=== PATIENT | male | born 1965 | race Caucasian/White ===

== ENCOUNTER 2016-09-22 07:34 | Inpatient (IN) | payer MEDICARE ==
[~2016-09-22] VITALS: Ht 182.9 cm; Wt 130.2 kg
[~2016-09-22 07:34] MED LIST: ARIP10TA14 PO
[2016-09-22] MEDS ORDERED: PARO20TA24 PO (07:54)
[2016-09-22] MEDS ORDERED: TRAZ-144 PO (07:54)
[2016-09-22] MEDS ORDERED: RISP2 PO (07:54)
[2016-09-22 07:57] LABS: GLUCOSE,POINT OF CARE 109 MG/DL (70-110)
[2016-09-22 08:25] LABS: EOSINOPHILS # (AUTO) 0.21 K/uL (0.00-0.70); EOSINOPHILS % (AUTO) 3.34 % (1.0-6.0); HEMATOCRIT 42.7 % (41-53); HEMOGLOBIN 14.2 g/dL (13.5-17.5); LYMPHOCYTES # (AUTO) 1.2 K/uL (1.0-4.8); LYMPHOCYTES % (AUTO) 18.9 % (22.0-44.0); MEAN CORPUSCULAR HEMOGLOBIN 31.2 pg (26.0-34.0); MEAN CORPUSCULAR HGB CONC 33.3 G/dL (31.0-37.0); MEAN CORPUSCULAR VOLUME 94 fL (80-100); MONOCYTES # (AUTO) 0.4 K/uL (0.1-1.0); MONOCYTES % (AUTO) 5.7 % (2.0-9.0); NEUTROPHILS # (AUTO) 4.5 K/uL (1.8-7.7); NEUTROPHILS % (AUTO) 72.1 % (40.0-70.0); PLATELET COUNT (AUTO) 229 K/uL (150-450); RED BLOOD CELL COUNT(AUTO) 4.56 MIL/uL (4.50-5.90); RED CELL DISTRIBUTION WIDTH 14.1 % (11.5-14.5); WHITE BLOOD COUNT (AUTO) 6.3 K/uL (4.5-11.0)
[2016-09-22 08:33] LABS: ANION GAP 8 mmol/L (8-16); CALCIUM, TOTAL 8.6 mg/dL (8.8-10.5); CARBON DIOXIDE 28 mmol/L (22-29); CHLORIDE 101 mmol/L (98-107); GLOMERULAR FILTR. RATE CALC > 60 mL/min (>60); POTASSIUM 3.8 mmol/L (3.5-5.1); SODIUM SERUM 137 mmol/L (136-145); UREA NITROGEN, BLOOD 13 mg/dL (7-18)
[2016-09-22 08:38] LABS: ALANINE AMINOTRANSFERASE 16 U/L (12-78); ALBUMIN 3.7 g/dL (3.4-5.0); ASPARTATE AMINOTRANSFERASE 11 U/L (15-37); BILIRUBIN,TOTAL 0.9 mg/dL (0.1-1.0)
[2016-09-22] MEDS ORDERED: HALOPERIDOL 5 MG TABLET PO ONE (09:45)
[2016-09-22] MEDS ORDERED: LORazepam 2 MG TABLET PO ONE (09:45)
[2016-09-22] MEDS ORDERED: ZOLPIDEM TARTRATE 10 MG TABLET PO PRN (11:00)
[2016-09-22] MEDS ORDERED: HALOPERIDOL 5 MG TABLET PO PRN (11:00)
[2016-09-22] MEDS ORDERED: INFLUENZA VIRUS VACCINE QVS 2016-17 (3YR+)/PF 60 MCG/0.5 ML SYRINGE IM ONE (15:00)
[2016-09-22 16:00] VITALS: BP 134/64
[2016-09-22] MEDS ORDERED: ALBUTEROL SULFATE HFA 90 MCG/PUFF 8 GM INHALER IH PRN (17:45)
[2016-09-22] MEDS ORDERED: IBUPROFEN 400 MG TABLET PO PRN (17:45)
[2016-09-22] MEDS ORDERED: ACETAMINOPHEN 325 MG TABLET PO PRN (17:45)
[2016-09-23 08:17] VITALS: BP 145/91
[2016-09-23] MEDS ORDERED: ARIPiprazole 10 MG TABLET PO SCH (09:00)
[2016-09-23] MEDS: AmLODIPine BESYLATE 2.5 MG TABLET PO SCH (09:31)
[2016-09-23] MEDS: HALOPERIDOL 5 MG TABLET PO SCH ×2 (09:31→16:49)
[2016-09-23] MEDS: LORazepam 2 MG TABLET PO PRN ×2 (09:32→16:49)
[2016-09-23 16:00] VITALS: BP 142/90
[2016-09-24 08:11] VITALS: BP 138/89
[2016-09-24] MEDS: AmLODIPine BESYLATE 2.5 MG TABLET PO SCH (09:03)
[2016-09-24] MEDS: HALOPERIDOL 5 MG TABLET PO SCH ×2 (09:03→17:01)
[2016-09-24 16:52] VITALS: BP 149/87
[2016-09-24] MEDS: LORazepam 2 MG TABLET PO PRN (17:01)
[2016-09-25] MEDS: AmLODIPine BESYLATE 2.5 MG TABLET PO SCH (08:24)
[2016-09-25] MEDS: HALOPERIDOL 5 MG TABLET PO SCH ×2 (08:24→17:02)
[2016-09-25] MEDS: LORazepam 2 MG TABLET PO PRN ×2 (08:24→17:02)
[2016-09-25 09:55] VITALS: BP 135/70
[2016-09-25 16:00] VITALS: BP 138/75
[2016-09-26 08:09] LABS: HEMOGLOBIN A1C 4.9 % (4.5-6.2)
[2016-09-26 08:16] VITALS: BP 130/74
[2016-09-26 08:36] LABS: CHOL/HDL RATIO 2.8 (4.2-7.3); THYROID STIMULATING HORMONE 1.43 uIU/mL (0.36-3.74)
[2016-09-26] MEDS: LORazepam 2 MG TABLET PO PRN (09:58)
[2016-09-26] MEDS: HALOPERIDOL 5 MG TABLET PO SCH (09:58)
[2016-09-26] MEDS: AmLODIPine BESYLATE 2.5 MG TABLET PO SCH (09:58)
[2016-09-26] MEDS ORDERED: AMLO2.5T PO (13:39)
[2016-09-26] MEDS ORDERED: HALO5 PO (13:39)
== END 2016-09-26 14:45 | disposition home or self-care (01) | DRG 885 ==
LOC: EEVIPCON 07:34 → EMS 07:36 → AHU 12:49 → B3A 13:41
PROVIDERS: ADMIT Psychiatry & Neurology Child & Adolescent Psychiatry; ATTEND Psychiatry & Neurology Child & Adolescent Psychiatry
DX: F25.0 Schizoaffective disorder, bipolar type (principal); R45.851 Suicidal ideations; E11.9 Type 2 diabetes mellitus without complications; I10 Essential (primary) hypertension; J44.9 Chronic obstructive pulmonary disease, unspecified; D64.9 Anemia, unspecified; F17.210 Nicotine dependence, cigarettes, uncomplicated; E66.3 Overweight; Z28.21 Immunization not carried out because of patient refusal; Z91.19 Patient's noncompliance with other medical treatment and regimen; Z88.8 Allergy status to other drugs, medicaments and biological substances; Z68.38 Body mass index [BMI] 38.0-38.9, adult; Z79.899 Other long term (current) drug therapy; Z71.6 Tobacco abuse counseling; Z86.718 Personal history of other venous thrombosis and embolism
CPT/HCPCS: 82962; 83036; 84443; 99285; G0480

== ENCOUNTER 2016-12-13 16:06 | Inpatient (IN) | payer MEDICARE, MEDICAID ==
[~2016-12-13] VITALS: Ht 182.9 cm; Wt 139.3 kg
[~2016-12-13 16:06] MED LIST changes: +AMLO2.5T PO; -ARIP10TA14 PO; +HALO5 PO
[2016-12-13 16:27] LABS: GLUCOSE COMMENT 1 Repeated; GLUCOSE,POINT OF CARE 131 MG/DL (70-110)
[2016-12-13] MEDS ORDERED: LISI-660 PO (16:35)
[2016-12-13] MEDS ORDERED: RISP.5 PO (16:35)
[2016-12-13] MEDS ORDERED: ARIP2 PO (16:35)
[2016-12-13] MEDS ORDERED: PARO10TA89 PO (16:35)
[2016-12-13 16:53] LABS: BASOPHILS % (AUTO) 0.1 % (0.0-2.0); EOSINOPHILS % (AUTO) 2.4 % (1.0-6.0); HEMATOCRIT 42.4 % (41-53); HEMOGLOBIN 13.6 g/dL (13.5-17.5); LYMPHOCYTES # (AUTO) 1.4 K/uL (1.0-4.8); LYMPHOCYTES % (AUTO) 13.4 % (22.0-44.0); MEAN CORPUSCULAR HEMOGLOBIN 29.8 pg (26.0-34.0); MEAN CORPUSCULAR HGB CONC 32.1 G/dL (31.0-37.0); MEAN CORPUSCULAR VOLUME 93 fL (80-100); MONOCYTES # (AUTO) 0.5 K/uL (0.1-1.0); MONOCYTES % (AUTO) 5.2 % (2.0-9.0); NEUTROPHILS % (AUTO) 78.9 % (40.0-70.0); PLATELET COUNT (AUTO) 218 K/uL (150-450); RED BLOOD CELL COUNT(AUTO) 4.56 MIL/uL (4.50-5.90); WHITE BLOOD COUNT (AUTO) 10.1 K/uL (4.5-11.0)
[2016-12-13 17:10] LABS: ANION GAP 9 mmol/L (8-16); CALCIUM, TOTAL 9.1 mg/dL (8.8-10.5); CARBON DIOXIDE 28 mmol/L (22-29); CHLORIDE 104 mmol/L (98-107); CREATININE 0.82 mg/dL (0.60-1.30); GLOMERULAR FILTR. RATE CALC > 60 mL/min (>60); POTASSIUM 3.6 mmol/L (3.5-5.1); SODIUM SERUM 141 mmol/L (136-145); UREA NITROGEN, BLOOD 22 mg/dL (7-18)
[2016-12-13 17:15] LABS: ALANINE AMINOTRANSFERASE 20 U/L (12-78); ALBUMIN 3.7 g/dL (3.4-5.0); ASPARTATE AMINOTRANSFERASE 19 U/L (15-37); BILIRUBIN,TOTAL 0.6 mg/dL (0.1-1.0); TOTAL PROTEIN, SERUM 7.3 g/dL (6.4-8.2)
[2016-12-13] MEDS ORDERED: HALOPERIDOL 5 MG TABLET PO PRN (17:30)
[2016-12-13] MEDS: LORazepam 2 MG TABLET PO PRN (20:05)
[2016-12-13] MEDS ORDERED: PNEUMOCOCCAL VACCINE POLYVALENT 0.5 ML VIAL [PPSV23] IM ONE (20:45)
[2016-12-13 21:01] LABS: GLUCOSE,POINT OF CARE 109 MG/DL (70-110)
[2016-12-13 21:23] VITALS: BP 138/80
[2016-12-14 07:10] VITALS: BP 132/85
[2016-12-14] MEDS: AmLODIPine BESYLATE 2.5 MG TABLET PO SCH (09:46)
[2016-12-14] MEDS: NYSTATIN 15 GM POWDER BOTTLE TP SCH ×2 (09:46→17:28)
[2016-12-14] MEDS: HALOPERIDOL 10 MG TABLET PO SCH (20:21)
[2016-12-14] MEDS: ZOLPIDEM TARTRATE 10 MG TABLET PO PRN (20:21)
[2016-12-14] MEDS: LORazepam 2 MG TABLET PO PRN (20:38)
[2016-12-15] MEDS: NYSTATIN 15 GM POWDER BOTTLE TP SCH ×2 (08:21→18:03)
[2016-12-15] MEDS: AmLODIPine BESYLATE 2.5 MG TABLET PO SCH (08:22)
[2016-12-15] MEDS: HALOPERIDOL 10 MG TABLET PO SCH (20:45)
[2016-12-15] MEDS: ZOLPIDEM TARTRATE 10 MG TABLET PO PRN (21:51)
[2016-12-16] MEDS: AmLODIPine BESYLATE 2.5 MG TABLET PO SCH (08:56)
[2016-12-16] MEDS: NYSTATIN 15 GM POWDER BOTTLE TP SCH (08:58)
[2016-12-16] MEDS ORDERED: ACETAMINOPHEN 325 MG TABLET PO PRN (10:30)
[2016-12-16] MEDS ORDERED: HALO10 PO (10:56)
[2016-12-16] MEDS ORDERED: AMLO2.5T PO (10:57)
== END 2016-12-16 13:05 | disposition home or self-care (01) | DRG 885 ==
LOC: EMS 16:08 → B3A 17:43
PROVIDERS: ADMIT Psychiatry & Neurology Psychiatry; ATTEND Psychiatry & Neurology Psychiatry
PROC: 3E0234Z Introduction of Serum, Toxoid and Vaccine into Muscle, Percutaneous Approach (ICD-10-PCS; principal; 2016-12-13)
DX: F25.9 Schizoaffective disorder, unspecified (principal); R45.851 Suicidal ideations; F32.9 Major depressive disorder, single episode, unspecified; I10 Essential (primary) hypertension; E11.9 Type 2 diabetes mellitus without complications; J44.9 Chronic obstructive pulmonary disease, unspecified; G40.909 Epilepsy, unspecified, not intractable, without status epilepticus; Z83.3 Family history of diabetes mellitus; Z80.9 Family history of malignant neoplasm, unspecified; Z88.8 Allergy status to other drugs, medicaments and biological substances; Z86.718 Personal history of other venous thrombosis and embolism; Z79.899 Other long term (current) drug therapy; Z53.29 Procedure and treatment not carried out because of patient's decision for other reasons
CPT/HCPCS: 82962; 99285; G0480

== ENCOUNTER 2017-02-16 00:48 | Emergency (ER) | payer MEDICARE, MEDICAID ==
[~2017-02-16] VITALS: Ht 190.5 cm; Wt 140.0 kg
[~2017-02-16 00:48] MED LIST changes: +HALO10 PO; -HALO5 PO
[2017-02-16 02:19] LABS: BASOPHILS # (AUTO) 0.02 K/uL (0.00-0.20); BASOPHILS % (AUTO) 0.2 % (0.0-2.0); EOSINOPHILS # (AUTO) 0.22 K/uL (0.00-0.70); EOSINOPHILS % (AUTO) 2.44 % (1.0-6.0); HEMATOCRIT 42.8 % (41-53); HEMOGLOBIN 14.2 g/dL (13.5-17.5); LYMPHOCYTES # (AUTO) 1.4 K/uL (1.0-4.8); LYMPHOCYTES % (AUTO) 15.5 % (22.0-44.0); MEAN CORPUSCULAR HEMOGLOBIN 31.5 pg (26.0-34.0); MEAN CORPUSCULAR HGB CONC 33.2 G/dL (31.0-37.0); MEAN CORPUSCULAR VOLUME 95 fL (80-100); MONOCYTES # (AUTO) 0.6 K/uL (0.1-1.0); MONOCYTES % (AUTO) 6.8 % (2.0-9.0); NEUTROPHILS # (AUTO) 6.9 K/uL (1.8-7.7); NEUTROPHILS % (AUTO) 75.1 % (40.0-70.0); PLATELET COUNT (AUTO) 227 K/uL (150-450); RED BLOOD CELL COUNT(AUTO) 4.51 MIL/uL (4.50-5.90); WHITE BLOOD COUNT (AUTO) 9.2 K/uL (4.5-11.0)
[2017-02-16 02:30] LABS: ANION GAP 9 mmol/L (8-16); CALCIUM, TOTAL 9.3 mg/dL (8.8-10.5); CARBON DIOXIDE 28 mmol/L (22-29); CHLORIDE 103 mmol/L (98-107); CREATININE 0.91 mg/dL (0.60-1.30); GLOMERULAR FILTR. RATE CALC > 60 mL/min (>60); POTASSIUM 3.5 mmol/L (3.5-5.1); SODIUM SERUM 140 mmol/L (136-145); UREA NITROGEN, BLOOD 20 mg/dL (7-18)
[2017-02-16 02:37] LABS: ALANINE AMINOTRANSFERASE 22 U/L (12-78); ASPARTATE AMINOTRANSFERASE 12 U/L (15-37); BILIRUBIN,TOTAL 0.6 mg/dL (0.1-1.0); TOTAL PROTEIN, SERUM 7.3 g/dL (6.4-8.2)
[2017-02-16] MEDS ORDERED: LORazepam 2 MG TABLET PO ONE (03:30)
[2017-02-16 03:37] LABS: VALPROIC ACID < 3 mcg/mL (50-100)
[2017-02-16 03:59] VITALS: BP 132/63
== END 2017-02-16 04:01 | disposition home or self-care (01) ==
LOC: EMS 00:51
DX: F32.9 Major depressive disorder, single episode, unspecified (principal); E11.9 Type 2 diabetes mellitus without complications; F20.9 Schizophrenia, unspecified; I10 Essential (primary) hypertension; Z88.8 Allergy status to other drugs, medicaments and biological substances
CPT/HCPCS: 36415; 80053; 80164; 85025; 99284; G0480

== ENCOUNTER 2017-10-26 17:27 | Inpatient (IN) | payer MEDICARE, MEDICAID ==
[~2017-10-26] VITALS: Ht 182.9 cm; Wt 113.3 kg
[2017-10-26] MEDS ORDERED: LISI-661 PO (18:24)
[2017-10-26] MEDS ORDERED: METF500T4 PO (18:24)
[2017-10-26 18:42] LABS: GLUCOSE,POINT OF CARE 148 MG/DL (70-110)
[2017-10-26 18:57] LABS: BASOPHILS % (AUTO) 0.3 % (0.0-2.0); EOSINOPHILS % (AUTO) 3.5 % (1.0-6.0); HEMATOCRIT 38.5 % (41-53); HEMOGLOBIN 13.1 g/dL (13.5-17.5); LYMPHOCYTES # (AUTO) 1.8 K/uL (1.0-4.8); LYMPHOCYTES % (AUTO) 24.7 % (22.0-44.0); MEAN CORPUSCULAR HEMOGLOBIN 31.1 pg (26.0-34.0); MEAN CORPUSCULAR HGB CONC 34.1 G/dL (31.0-37.0); MEAN CORPUSCULAR VOLUME 91 fL (80-100); MONOCYTES # (AUTO) 0.6 K/uL (0.1-1.0); MONOCYTES % (AUTO) 7.6 % (2.0-9.0); NEUTROPHILS # (AUTO) 4.6 K/uL (1.8-7.7); NEUTROPHILS % (AUTO) 63.9 % (40.0-70.0); PLATELET COUNT (AUTO) 215 K/uL (150-450); RED BLOOD CELL COUNT(AUTO) 4.22 MIL/uL (4.50-5.90); RED CELL DISTRIBUTION WIDTH 13.4 % (11.5-14.5)
[2017-10-26 19:22] LABS: ANION GAP 9 mmol/L (8-16); CALCIUM, TOTAL 8.6 mg/dL (8.8-10.5); CARBON DIOXIDE 28 mmol/L (22-29); CHLORIDE 104 mmol/L (98-107); GLOMERULAR FILTR. RATE CALC > 60 mL/min (>60); GLUCOSE,RANDOM 141 mg/dL (70-110); POTASSIUM 3.9 mmol/L (3.5-5.1); SODIUM SERUM 141 mmol/L (136-145); UREA NITROGEN, BLOOD 15 mg/dL (7-18)
[2017-10-26 19:25] LABS: ALANINE AMINOTRANSFERASE 21 U/L (12-78); ALBUMIN 3.4 g/dL (3.4-5.0); ALKALINE PHOSPHATASE 55 U/L (46-116); ASPARTATE AMINOTRANSFERASE 13 U/L (15-37); BILIRUBIN,TOTAL 0.3 mg/dL (0.1-1.0); TOTAL PROTEIN, SERUM 6.4 g/dL (6.4-8.2)
[2017-10-26] MEDS ORDERED: HALOPERIDOL LACTATE 5 MG/ML VIAL ONE (20:55)
[2017-10-26] MEDS ORDERED: LORazepam 2 MG/ML VIAL ONE (20:55)
[2017-10-26] MEDS ORDERED: DiphenhydrAMINE HCL 50 MG/ML VIAL ONE (20:55)
[2017-10-26] MEDS ORDERED: LORazepam 2 MG/ML VIAL IM ONE ×2 (21:00)
[2017-10-26] MEDS ORDERED: HALOPERIDOL LACTATE 5 MG/ML VIAL IM ONE ×2 (21:00)
[2017-10-26] MEDS ORDERED: DiphenhydrAMINE HCL 50 MG/ML VIAL IM ONE ×2 (21:00)
[2017-10-27 02:30] LABS: CHOL/HDL RATIO 3.1 (4.2-7.3); CHOLESTEROL 127 mg/dL (131-200); HDL CHOLESTEROL 41 mg/dL (40-60); LDL CHOL (CALC.) 80 mg/dL (0-130); TRIGLYCERIDES 28 mg/dL (15-150)
[2017-10-27] MEDS ORDERED: ACETAMINOPHEN 325 MG TABLET PO PRN (12:00)
[2017-10-27] MEDS ORDERED: IBUPROFEN 400 MG TABLET PO PRN (12:00)
[2017-10-27] MEDS: LORazepam 2 MG TABLET PO PRN (17:22)
[2017-10-27] MEDS: ZOLPIDEM TARTRATE 10 MG TABLET PO PRN (20:44)
[2017-10-27] MEDS ORDERED: MetFORMIN HCL 500 MG TABLET PO SCH (21:00)
[2017-10-28 01:40] VITALS: BP 121/88
[2017-10-28] MEDS ORDERED: INFLUENZA VIRUS VACCINE QVS 2017-18 (3YR+)/PF 60 MCG/0.5 ML SYRINGE IM ONE (02:15)
[2017-10-28] MEDS ORDERED: PNEUMOCOCCAL VACCINE POLYVALENT 0.5 ML VIAL [PPSV23] IM ONE (02:15)
[2017-10-28 08:12] VITALS: BP 169/105
[2017-10-28] MEDS: LISINOPRIL 10 MG TABLET PO SCH (08:16)
[2017-10-28] MEDS ORDERED: ALBUTEROL SULFATE HFA 90 MCG/PUFF 8 GM INHALER IH PRN (14:15)
[2017-10-28] MEDS ORDERED: CloNIDine HCL 0.1 MG TABLET PO PRN (14:15)
[2017-10-28] MEDS: HALOPERIDOL 5 MG TABLET PO PRN (15:58)
[2017-10-28] MEDS: LORazepam 2 MG TABLET PO PRN (15:58)
[2017-10-28 16:00] VITALS: BP 135/86
[2017-10-28] MEDS: MetFORMIN HCL 500 MG TABLET PO SCH (17:08)
[2017-10-28] MEDS: ZOLPIDEM TARTRATE 10 MG TABLET PO PRN (20:41)
[2017-10-28] MEDS ORDERED: HALOPERIDOL 10 MG TABLET PO SCH (21:00)
[2017-10-29 00:07] VITALS: BP 123/83
[2017-10-29] MEDS: MetFORMIN HCL 500 MG TABLET PO SCH ×2 (06:27→16:48)
[2017-10-29 08:09] VITALS: BP 128/78
[2017-10-29] MEDS: LISINOPRIL 10 MG TABLET PO SCH (08:39)
[2017-10-29] MEDS: HALOPERIDOL 5 MG TABLET PO PRN ×2 (11:30→16:48)
[2017-10-29] MEDS: LORazepam 2 MG TABLET PO PRN ×2 (11:30→16:48)
[2017-10-29 16:00] VITALS: BP 140/86
[2017-10-29] MEDS: HALOPERIDOL 10 MG TABLET PO SCH (20:40)
[2017-10-29] MEDS: ZOLPIDEM TARTRATE 10 MG TABLET PO PRN (20:40)
[2017-10-30 06:43] VITALS: BP 157/85
[2017-10-30] MEDS: MetFORMIN HCL 500 MG TABLET PO SCH ×2 (06:43→16:28)
[2017-10-30] MEDS: HALOPERIDOL 10 MG TABLET PO SCH ×2 (08:24→20:46)
[2017-10-30] MEDS: LISINOPRIL 10 MG TABLET PO SCH (08:24)
[2017-10-30 08:33] VITALS: BP 143/71
[2017-10-30 16:08] VITALS: BP 156/88
[2017-10-30] MEDS: LORazepam 2 MG TABLET PO PRN (16:28)
[2017-10-31] MEDS: MetFORMIN HCL 500 MG TABLET PO SCH (07:08)
[2017-10-31] MEDS: HALOPERIDOL 10 MG TABLET PO SCH (08:43)
[2017-10-31] MEDS: LISINOPRIL 10 MG TABLET PO SCH (08:43)
[2017-10-31] MEDS ORDERED: HALO10TA15 PO (11:17)
[2017-10-31] MEDS ORDERED: METF500T PO (11:17)
== END 2017-10-31 16:47 | disposition home or self-care (01) | DRG 885 ==
LOC: EMS 17:30 → B3A 10-27 22:14
PROVIDERS: ADMIT Psychiatry & Neurology Child & Adolescent Psychiatry; ATTEND Psychiatry & Neurology Child & Adolescent Psychiatry
DX: F25.9 Schizoaffective disorder, unspecified (principal); E44.1 Mild protein-calorie malnutrition; R45.851 Suicidal ideations; F31.9 Bipolar disorder, unspecified; E11.9 Type 2 diabetes mellitus without complications; E66.3 Overweight; E83.51 Hypocalcemia; F17.210 Nicotine dependence, cigarettes, uncomplicated; F41.9 Anxiety disorder, unspecified; G40.909 Epilepsy, unspecified, not intractable, without status epilepticus; I10 Essential (primary) hypertension; J44.9 Chronic obstructive pulmonary disease, unspecified; Z59.9 Problem related to housing and economic circumstances, unspecified; Z82.49 Family history of ischemic heart disease and other diseases of the circulatory system; Z83.3 Family history of diabetes mellitus; Z86.718 Personal history of other venous thrombosis and embolism; Z88.8 Allergy status to other drugs, medicaments and biological substances; Z79.899 Other long term (current) drug therapy; Z68.33 Body mass index [BMI] 33.0-33.9, adult
CPT/HCPCS: 82962; 90471; 96372; 99285; G0480; J1200; J1630; J2060

== ENCOUNTER 2018-05-01 03:08 | Emergency (ER) | payer MEDICAID, MEDICARE ==
[~2018-05-01] VITALS: Ht 180.3 cm; Wt 86.4 kg
[~2018-05-01 03:08] MED LIST changes: -AMLO2.5T PO; -HALO10 PO; +HALO10TA15 PO; +LISI-661 PO; +METF500T PO
[2018-05-01 03:14] VITALS: BP 150/91
[2018-05-01 03:29] LABS: GLUCOSE,POINT OF CARE 87 MG/DL (70-110)
== END 2018-05-01 04:27 | disposition home or self-care (01) ==
LOC: EMS 03:08
DX: F25.9 Schizoaffective disorder, unspecified (principal); F31.9 Bipolar disorder, unspecified; E11.9 Type 2 diabetes mellitus without complications; I10 Essential (primary) hypertension; Z86.718 Personal history of other venous thrombosis and embolism
CPT/HCPCS: 99284

== ENCOUNTER 2018-05-01 18:49 | Emergency (ER) | payer MEDICARE ==
[~2018-05-01] VITALS: Ht 180.3 cm; Wt 86.4 kg
[2018-05-01 21:35] VITALS: BP 142/86
[2018-05-01] MEDS ORDERED: ACETAMINOPHEN 500 MG TABLET PO ONE (22:00)
[2018-05-01] MEDS ORDERED: LORazepam 2 MG TABLET PO ONE (22:00)
[2018-05-01] MEDS ORDERED: HALOPERIDOL 5 MG TABLET PO ONE (22:00)
[2018-05-01 22:38] LABS: BASOPHILS % (AUTO) 0.8 % (0.0-2.0); EOSINOPHILS % (AUTO) 3.1 % (1.0-6.0); LYMPHOCYTES # (AUTO) 2.4 K/uL (1.0-4.8); LYMPHOCYTES % (AUTO) 31.9 % (22.0-44.0); MEAN CORPUSCULAR HEMOGLOBIN 30.8 pg (26.0-34.0); MEAN CORPUSCULAR HGB CONC 34.3 G/dL (31.0-37.0); MEAN CORPUSCULAR VOLUME 90 fL (80-100); MONOCYTES # (AUTO) 0.6 K/uL (0.1-1.0); MONOCYTES % (AUTO) 7.9 % (2.0-9.0); NEUTROPHILS # (AUTO) 4.3 K/uL (1.8-7.7); NEUTROPHILS % (AUTO) 56.3 % (40.0-70.0); PLATELET COUNT (AUTO) 231 K/uL (150-450); RED BLOOD CELL COUNT(AUTO) 3.56 MIL/uL (4.50-5.90); RED CELL DISTRIBUTION WIDTH 16.5 % (11.5-14.5)
[2018-05-01 22:39] LABS: ANION GAP 8 mmol/L (8-16); CALCIUM, TOTAL 9.2 mg/dL (8.8-10.5); CARBON DIOXIDE 29 mmol/L (22-29); CHLORIDE 102 mmol/L (98-107); CREATININE 0.98 mg/dL (0.60-1.30); GLOMERULAR FILTR. RATE CALC > 60 mL/min (>60); GLUCOSE,RANDOM 81 mg/dL (70-110); POTASSIUM 3.5 mmol/L (3.5-5.1); SODIUM SERUM 139 mmol/L (136-145); UREA NITROGEN, BLOOD 16 mg/dL (7-18)
[2018-05-01 22:41] LABS: ALANINE AMINOTRANSFERASE 11 U/L (12-78); ALBUMIN 3.6 g/dL (3.4-5.0); ALKALINE PHOSPHATASE 74 U/L (46-116); ASPARTATE AMINOTRANSFERASE 17 U/L (15-37); BILIRUBIN,TOTAL 0.8 mg/dL (0.1-1.0); TOTAL PROTEIN, SERUM 7.1 g/dL (6.4-8.2)
== END 2018-05-01 22:58 | disposition left against medical advice (07) ==
LOC: EMS 18:50
DX: F29 Unspecified psychosis not due to a substance or known physiological condition (principal); F20.9 Schizophrenia, unspecified; F31.9 Bipolar disorder, unspecified; E11.9 Type 2 diabetes mellitus without complications; I10 Essential (primary) hypertension; Z86.718 Personal history of other venous thrombosis and embolism; Z59.0 Homelessness
CPT/HCPCS: 36415; 80053; 85025; 99284; G0480

== ENCOUNTER 2018-05-09 03:01 | Emergency (ER) | payer MEDICARE ==
[~2018-05-09] VITALS: Ht 180.3 cm; Wt 86.0 kg
[2018-05-09 03:19] LABS: GLUCOSE,POINT OF CARE 123 MG/DL (70-110)
[2018-05-09 03:53] VITALS: BP 134/89
[2018-05-09 04:12] LABS: BAND NEUTROPHILS % (MANUAL) 0 % (0-5)
[2018-05-09 04:14] LABS: HEMATOCRIT 35.3 % (41-53); HEMOGLOBIN 11.8 g/dL (13.5-17.5); MEAN CORPUSCULAR HEMOGLOBIN 30.5 pg (26.0-34.0); MEAN CORPUSCULAR HGB CONC 33.5 G/dL (31.0-37.0); MEAN CORPUSCULAR VOLUME 91 fL (80-100); PLATELET COUNT (AUTO) 214 K/uL (150-450); RED BLOOD CELL COUNT(AUTO) 3.88 MIL/uL (4.50-5.90)
[2018-05-09 04:23] LABS: ANION GAP 7 mmol/L (8-16); CALCIUM, TOTAL 8.7 mg/dL (8.8-10.5); CARBON DIOXIDE 28 mmol/L (22-29); CHLORIDE 105 mmol/L (98-107); CREATININE 1.09 mg/dL (0.60-1.30); GLOMERULAR FILTR. RATE CALC > 60 mL/min (>60); GLUCOSE,RANDOM 105 mg/dL (70-110); POTASSIUM 3.9 mmol/L (3.5-5.1); SODIUM SERUM 140 mmol/L (136-145); UREA NITROGEN, BLOOD 33 mg/dL (7-18)
[2018-05-09 04:28] LABS: ALANINE AMINOTRANSFERASE 12 U/L (12-78); ALBUMIN 3.9 g/dL (3.4-5.0); ALKALINE PHOSPHATASE 77 U/L (46-116); ASPARTATE AMINOTRANSFERASE 11 U/L (15-37); BILIRUBIN,TOTAL 0.6 mg/dL (0.1-1.0); TOTAL PROTEIN, SERUM 7.4 g/dL (6.4-8.2)
[2018-05-09 04:31] LABS: BASOPHILS % (MANUAL) 2 % (0-2); EOSINOPHILS % (MANUAL) 4 % (1-6); LYMPHOCYTES % (MANUAL) 37 % (22-44); MONOCYTES % (MANUAL) 6 % (2-9); SEGMENTED NEUTROPHILS % 51 % (40-70)
[2018-05-09] MEDS ORDERED: ACETAMINOPHEN 325 MG TABLET PO ONE (05:00)
== END 2018-05-09 05:25 | disposition home or self-care (01) ==
LOC: EMS 03:02
DX: F31.9 Bipolar disorder, unspecified (principal); F20.9 Schizophrenia, unspecified; K42.9 Umbilical hernia without obstruction or gangrene; E11.9 Type 2 diabetes mellitus without complications; I10 Essential (primary) hypertension; Z86.718 Personal history of other venous thrombosis and embolism
CPT/HCPCS: 36415; 80053; 82962; 85007; 85027; 99284; G0480

== ENCOUNTER 2018-05-09 12:08 | Inpatient (IN) | payer MEDICARE, MEDICAID ==
[~2018-05-09] VITALS: Ht 182.9 cm; Wt 96.1 kg
[2018-05-09] MEDS ORDERED: LORazepam 2 MG/ML VIAL IM ONE (12:45)
[2018-05-09] MEDS ORDERED: DiphenhydrAMINE HCL 50 MG/ML VIAL IM ONE (12:45)
[2018-05-09] MEDS ORDERED: HALOPERIDOL LACTATE 5 MG/ML VIAL IM ONE (12:45)
[2018-05-09 12:53] LABS: BASOPHILS % (AUTO) 0.9 % (0.0-2.0); EOSINOPHILS % (AUTO) 5.6 % (1.0-6.0); HEMATOCRIT 32.7 % (41-53); HEMOGLOBIN 11.2 g/dL (13.5-17.5); LYMPHOCYTES # (AUTO) 1.6 K/uL (1.0-4.8); LYMPHOCYTES % (AUTO) 25.4 % (22.0-44.0); MEAN CORPUSCULAR HEMOGLOBIN 31.4 pg (26.0-34.0); MEAN CORPUSCULAR HGB CONC 34.2 G/dL (31.0-37.0); MEAN CORPUSCULAR VOLUME 92 fL (80-100); MONOCYTES # (AUTO) 0.5 K/uL (0.1-1.0); MONOCYTES % (AUTO) 7.9 % (2.0-9.0); NEUTROPHILS # (AUTO) 3.7 K/uL (1.8-7.7); NEUTROPHILS % (AUTO) 60.2 % (40.0-70.0); PLATELET COUNT (AUTO) 209 K/uL (150-450); RED BLOOD CELL COUNT(AUTO) 3.55 MIL/uL (4.50-5.90); RED CELL DISTRIBUTION WIDTH 16.3 % (11.5-14.5)
[2018-05-09 13:03] LABS: ANION GAP 10 mmol/L (8-16); CALCIUM, TOTAL 8.6 mg/dL (8.8-10.5); CARBON DIOXIDE 25 mmol/L (22-29); CHLORIDE 106 mmol/L (98-107); GLOMERULAR FILTR. RATE CALC > 60 mL/min (>60); GLUCOSE,RANDOM 124 mg/dL (70-110); POTASSIUM 3.9 mmol/L (3.5-5.1); SODIUM SERUM 141 mmol/L (136-145); UREA NITROGEN, BLOOD 32 mg/dL (7-18)
[2018-05-09 13:10] LABS: ALANINE AMINOTRANSFERASE 13 U/L (12-78); ALBUMIN 3.8 g/dL (3.4-5.0); ALKALINE PHOSPHATASE 74 U/L (46-116); ASPARTATE AMINOTRANSFERASE 11 U/L (15-37); BILIRUBIN,TOTAL 0.6 mg/dL (0.1-1.0); TOTAL PROTEIN, SERUM 7.3 g/dL (6.4-8.2)
[2018-05-09] MEDS ORDERED: PNEUMOCOCCAL VACCINE POLYVALENT 0.5 ML VIAL [PPSV23] IM ONE (16:45)
[2018-05-09 16:46] VITALS: BP 124/79
[2018-05-09] MEDS ORDERED: PETROLATUM,WHITE 71 GM JELLY TP PRN (17:30)
[2018-05-09] MEDS ORDERED: ALBUTEROL SULFATE HFA 90 MCG/PUFF 8 GM INHALER IH PRN (17:30)
[2018-05-09] MEDS ORDERED: DOCUSATE SODIUM 100 MG CAPSULE PO PRN (17:30)
[2018-05-09] MEDS ORDERED: ACETAMINOPHEN 325 MG TABLET PO PRN (17:30)
[2018-05-09] MEDS ORDERED: GuaiFENesin/D-METHORPHAN [SUGAR-FREE] 200-20MG/10 ML SYRUP UDCUP PO PRN (17:30)
[2018-05-09] MEDS ORDERED: MAG HYDROX/AL HYDROX/SIMETH ES 30 ML SUSPENSION UDCUP PO PRN (17:30)
[2018-05-09] MEDS ORDERED: MAGNESIUM HYDROXIDE SUSPENSION 30 ML UDCUP PO PRN (17:30)
[2018-05-09] MEDS ORDERED: NICOTINE 14 MG/24 HOUR PATCH TD PRN (17:30)
[2018-05-09] MEDS ORDERED: CloNIDine HCL 0.1 MG TABLET PO PRN (17:30)
[2018-05-09] MEDS ORDERED: LOPERAMIDE HCL 2 MG CAPSULE PO PRN (17:30)
[2018-05-10 06:34] VITALS: BP 128/74
[2018-05-10] MEDS: MetFORMIN HCL 500 MG TABLET PO SCH ×2 (06:35→16:50)
[2018-05-10 08:10] VITALS: BP 126/77
[2018-05-10] MEDS: LISINOPRIL 10 MG TABLET PO SCH (08:43)
[2018-05-10] MEDS: HALOPERIDOL 10 MG TABLET PO SCH ×2 (10:57→20:52)
[2018-05-10 16:00] VITALS: BP 110/74
[2018-05-10] MEDS: LORazepam 2 MG TABLET PO PRN (16:50)
[2018-05-10] MEDS: ZOLPIDEM TARTRATE 10 MG TABLET PO PRN (20:52)
[2018-05-11 06:37] VITALS: BP 134/77
[2018-05-11] MEDS: MetFORMIN HCL 500 MG TABLET PO SCH ×2 (06:44→16:54)
[2018-05-11 08:08] VITALS: BP 145/79
[2018-05-11] MEDS: LISINOPRIL 10 MG TABLET PO SCH (08:48)
[2018-05-11] MEDS: HALOPERIDOL 10 MG TABLET PO SCH ×2 (08:48→20:23)
[2018-05-11 16:00] VITALS: BP 133/90
[2018-05-11] MEDS: LORazepam 2 MG TABLET PO PRN (16:54)
[2018-05-12 03:17] VITALS: BP 130/71
[2018-05-12] MEDS: MetFORMIN HCL 500 MG TABLET PO SCH ×2 (06:23→17:08)
[2018-05-12 08:10] VITALS: BP 132/74
[2018-05-12] MEDS: LISINOPRIL 10 MG TABLET PO SCH (08:39)
[2018-05-12] MEDS: HALOPERIDOL 10 MG TABLET PO SCH ×2 (08:39→20:57)
[2018-05-12 08:53] LABS: BASOPHILS % (AUTO) 0.9 % (0.0-2.0); EOSINOPHILS % (AUTO) 5.2 % (1.0-6.0); HEMATOCRIT 31.3 % (41-53); HEMOGLOBIN 10.9 g/dL (13.5-17.5); LYMPHOCYTES # (AUTO) 1.5 K/uL (1.0-4.8); LYMPHOCYTES % (AUTO) 25.6 % (22.0-44.0); MEAN CORPUSCULAR HEMOGLOBIN 31.4 pg (26.0-34.0); MEAN CORPUSCULAR HGB CONC 34.8 G/dL (31.0-37.0); MEAN CORPUSCULAR VOLUME 90 fL (80-100); MONOCYTES # (AUTO) 0.4 K/uL (0.1-1.0); MONOCYTES % (AUTO) 6.3 % (2.0-9.0); NEUTROPHILS # (AUTO) 3.6 K/uL (1.8-7.7); PLATELET COUNT (AUTO) 185 K/uL (150-450); RED BLOOD CELL COUNT(AUTO) 3.48 MIL/uL (4.50-5.90); RED CELL DISTRIBUTION WIDTH 15.6 % (11.5-14.5)
[2018-05-12 09:14] LABS: HEMOGLOBIN A1C 5.1 % (4.5-6.2)
[2018-05-12 09:19] LABS: ALANINE AMINOTRANSFERASE 13 U/L (12-78); ALBUMIN 3.2 g/dL (3.4-5.0); ALKALINE PHOSPHATASE 62 U/L (46-116); ANION GAP 3 mmol/L (8-16); ASPARTATE AMINOTRANSFERASE 9 U/L (15-37); BILIRUBIN,TOTAL 0.4 mg/dL (0.1-1.0); CALCIUM, TOTAL 8.9 mg/dL (8.8-10.5); CARBON DIOXIDE 30 mmol/L (22-29); CHLORIDE 106 mmol/L (98-107); CHOL/HDL RATIO 2.6 (4.2-7.3); CHOLESTEROL 108 mg/dL (131-200); GLOMERULAR FILTR. RATE CALC > 60 mL/min (>60); GLUCOSE,RANDOM 79 mg/dL (70-110); HDL CHOLESTEROL 42 mg/dL (40-60); LDL CHOL (CALC.) 57 mg/dL (0-130); POTASSIUM 4.2 mmol/L (3.5-5.1); SODIUM SERUM 139 mmol/L (136-145); THYROID STIMULATING HORMONE 0.99 uIU/mL (0.36-3.74); TOTAL PROTEIN, SERUM 6.4 g/dL (6.4-8.2); TRIGLYCERIDES 44 mg/dL (15-150); UREA NITROGEN, BLOOD 22 mg/dL (7-18)
[2018-05-12] MEDS: LORazepam 2 MG TABLET PO PRN (17:08)
[2018-05-12] MEDS: OLANZapine 5 MG RAPDIS TABLET PO PRN (17:08)
[2018-05-12 17:51] VITALS: BP 147/99
[2018-05-12] MEDS: ZOLPIDEM TARTRATE 10 MG TABLET PO PRN (20:57)
[2018-05-13 05:43] VITALS: BP 133/76
[2018-05-13] MEDS: MetFORMIN HCL 500 MG TABLET PO SCH ×2 (06:27→17:30)
[2018-05-13] MEDS: HALOPERIDOL 10 MG TABLET PO SCH ×2 (08:37→20:37)
[2018-05-13] MEDS: LISINOPRIL 10 MG TABLET PO SCH (08:37)
[2018-05-13 10:30] VITALS: BP 146/91
[2018-05-13] MEDS: IBUPROFEN 400 MG TABLET PO PRN (10:34)
[2018-05-13 11:34] VITALS: BP 132/78
[2018-05-13 16:00] VITALS: BP 144/90
[2018-05-14 05:48] VITALS: BP 150/92
[2018-05-14] MEDS: MetFORMIN HCL 500 MG TABLET PO SCH ×2 (06:12→16:43)
[2018-05-14] MEDS: FERROUS SULFATE 325 MG EC TABLET PO SCH ×3 (06:12→16:43)
[2018-05-14 08:11] VITALS: BP 135/97
[2018-05-14] MEDS: HALOPERIDOL 10 MG TABLET PO SCH ×2 (08:11→20:59)
[2018-05-14] MEDS: LISINOPRIL 10 MG TABLET PO SCH (08:11)
[2018-05-14 16:00] VITALS: BP 134/89
[2018-05-14] MEDS: OLANZapine 5 MG RAPDIS TABLET PO PRN (16:43)
[2018-05-14] MEDS: LORazepam 2 MG TABLET PO PRN (16:43)
[2018-05-14] MEDS: ZOLPIDEM TARTRATE 10 MG TABLET PO PRN (20:59)
[2018-05-15 06:46] VITALS: BP 147/74
[2018-05-15] MEDS: MetFORMIN HCL 500 MG TABLET PO SCH ×2 (06:48→17:05)
[2018-05-15] MEDS: FERROUS SULFATE 325 MG EC TABLET PO SCH ×3 (06:48→17:05)
[2018-05-15] MEDS: IBUPROFEN 400 MG TABLET PO PRN (06:48)
[2018-05-15 08:08] VITALS: BP 138/75
[2018-05-15] MEDS: HALOPERIDOL 10 MG TABLET PO SCH ×2 (08:54→20:46)
[2018-05-15] MEDS: LISINOPRIL 10 MG TABLET PO SCH (08:54)
[2018-05-15] MEDS: ONDANSETRON HCL 4 MG TABLET PO PRN ×2 (12:11→20:46)
[2018-05-15 16:00] VITALS: BP 132/78
[2018-05-16 01:57] VITALS: BP 123/62
[2018-05-16] MEDS: FERROUS SULFATE 325 MG EC TABLET PO SCH ×3 (06:23→17:25)
[2018-05-16] MEDS: MetFORMIN HCL 500 MG TABLET PO SCH ×2 (06:23→17:25)
[2018-05-16 08:25] VITALS: BP 115/56
[2018-05-16] MEDS: LISINOPRIL 10 MG TABLET PO SCH (09:00)
[2018-05-16] MEDS: HALOPERIDOL 10 MG TABLET PO SCH ×2 (09:36→21:36)
[2018-05-16 16:00] VITALS: BP 130/88
[2018-05-17 02:07] VITALS: BP 122/74
[2018-05-17] MEDS: MetFORMIN HCL 500 MG TABLET PO SCH ×2 (07:19→16:46)
[2018-05-17] MEDS: FERROUS SULFATE 325 MG EC TABLET PO SCH ×3 (07:19→16:46)
[2018-05-17] MEDS: LISINOPRIL 10 MG TABLET PO SCH (09:09)
[2018-05-17] MEDS: HALOPERIDOL 10 MG TABLET PO SCH ×2 (09:10→20:30)
[2018-05-17 09:16] VITALS: BP 119/70
[2018-05-17 16:43] VITALS: BP 119/69
[2018-05-17] MEDS: LORazepam 2 MG TABLET PO PRN (16:46)
[2018-05-17] MEDS: ZOLPIDEM TARTRATE 10 MG TABLET PO PRN (20:30)
[2018-05-18 01:44] VITALS: BP 103/67
[2018-05-18] MEDS: MetFORMIN HCL 500 MG TABLET PO SCH ×2 (07:19→17:40)
[2018-05-18] MEDS: FERROUS SULFATE 325 MG EC TABLET PO SCH ×3 (07:19→17:40)
[2018-05-18] MEDS: LISINOPRIL 10 MG TABLET PO SCH (09:30)
[2018-05-18] MEDS: HALOPERIDOL 10 MG TABLET PO SCH ×2 (09:30→20:08)
[2018-05-18] MEDS: LORazepam 2 MG TABLET PO PRN (10:24)
[2018-05-18 16:24] VITALS: BP 115/85
[2018-05-18] MEDS: ZOLPIDEM TARTRATE 10 MG TABLET PO PRN (20:08)
[2018-05-19 01:10] VITALS: BP 145/91
[2018-05-19] MEDS: MetFORMIN HCL 500 MG TABLET PO SCH ×2 (06:54→18:16)
[2018-05-19] MEDS: FERROUS SULFATE 325 MG EC TABLET PO SCH ×3 (06:54→18:16)
[2018-05-19 08:18] VITALS: BP 142/78
[2018-05-19] MEDS: HALOPERIDOL 10 MG TABLET PO SCH ×2 (09:01→20:33)
[2018-05-19] MEDS: LORazepam 2 MG TABLET PO PRN (09:01)
[2018-05-19] MEDS: LISINOPRIL 10 MG TABLET PO SCH (09:01)
[2018-05-19] MEDS: IBUPROFEN 400 MG TABLET PO PRN (09:18)
[2018-05-19 18:10] VITALS: BP 129/67
[2018-05-19] MEDS: ZOLPIDEM TARTRATE 10 MG TABLET PO PRN (20:33)
[2018-05-20 06:25] VITALS: BP 119/70
[2018-05-20] MEDS: MetFORMIN HCL 500 MG TABLET PO SCH ×2 (06:51→16:18)
[2018-05-20] MEDS: FERROUS SULFATE 325 MG EC TABLET PO SCH ×3 (06:51→16:18)
[2018-05-20 08:34] VITALS: BP 142/80
[2018-05-20] MEDS: LISINOPRIL 10 MG TABLET PO SCH (10:18)
[2018-05-20] MEDS: HALOPERIDOL 10 MG TABLET PO SCH ×2 (10:18→20:03)
[2018-05-20] MEDS: LORazepam 2 MG TABLET PO PRN (11:07)
[2018-05-20 16:52] VITALS: BP 136/82
[2018-05-21 00:31] VITALS: BP 129/84
[2018-05-21] MEDS: MetFORMIN HCL 500 MG TABLET PO SCH ×2 (06:48→16:55)
[2018-05-21] MEDS: FERROUS SULFATE 325 MG EC TABLET PO SCH ×3 (06:48→16:55)
[2018-05-21 08:20] VITALS: BP 133/77
[2018-05-21] MEDS: LISINOPRIL 10 MG TABLET PO SCH (08:41)
[2018-05-21] MEDS: LORazepam 2 MG TABLET PO PRN ×2 (08:41→13:28)
[2018-05-21] MEDS: HALOPERIDOL 10 MG TABLET PO SCH ×2 (08:41→20:30)
[2018-05-21 13:25] VITALS: BP 126/70
[2018-05-21] MEDS: IBUPROFEN 400 MG TABLET PO PRN (13:28)
[2018-05-21 16:17] VITALS: BP 112/71
[2018-05-22 02:15] VITALS: BP 123/87
[2018-05-22] MEDS: FERROUS SULFATE 325 MG EC TABLET PO SCH ×3 (06:49→16:29)
[2018-05-22] MEDS: MetFORMIN HCL 500 MG TABLET PO SCH ×2 (06:49→16:29)
[2018-05-22] MEDS: LISINOPRIL 10 MG TABLET PO SCH (08:51)
[2018-05-22] MEDS: HALOPERIDOL 10 MG TABLET PO SCH ×2 (08:51→21:10)
[2018-05-22] MEDS: LORazepam 2 MG TABLET PO PRN (08:51)
[2018-05-22 09:50] VITALS: BP 139/88
[2018-05-22 16:32] VITALS: BP 136/86
[2018-05-23 03:30] VITALS: BP 156/82
[2018-05-23] MEDS: FERROUS SULFATE 325 MG EC TABLET PO SCH ×3 (06:50→16:22)
[2018-05-23] MEDS: MetFORMIN HCL 500 MG TABLET PO SCH ×2 (06:50→16:22)
[2018-05-23 08:39] VITALS: BP 107/81
[2018-05-23] MEDS: HALOPERIDOL 10 MG TABLET PO SCH ×2 (08:56→20:26)
[2018-05-23] MEDS: LISINOPRIL 10 MG TABLET PO SCH (08:56)
[2018-05-23] MEDS: LORazepam 2 MG TABLET PO PRN (12:22)
[2018-05-23 16:17] VITALS: BP 120/69
[2018-05-23] MEDS: MIRTAZAPINE 15 MG TABLET PO SCH (20:26)
[2018-05-24 06:25] VITALS: BP 119/82
[2018-05-24] MEDS: FERROUS SULFATE 325 MG EC TABLET PO SCH ×3 (07:09→16:30)
[2018-05-24] MEDS: MetFORMIN HCL 500 MG TABLET PO SCH ×2 (07:09→16:30)
[2018-05-24 08:30] VITALS: BP 130/77
[2018-05-24] MEDS: HALOPERIDOL 10 MG TABLET PO SCH ×2 (08:53→20:20)
[2018-05-24] MEDS: LISINOPRIL 10 MG TABLET PO SCH (08:53)
[2018-05-24] MEDS: LORazepam 2 MG TABLET PO PRN ×2 (09:41→16:30)
[2018-05-24 16:53] VITALS: BP 110/86
[2018-05-24] MEDS: MIRTAZAPINE 15 MG TABLET PO SCH (20:20)
[2018-05-24] MEDS: ZOLPIDEM TARTRATE 10 MG TABLET PO PRN (20:20)
[2018-05-25] MEDS: FERROUS SULFATE 325 MG EC TABLET PO SCH ×3 (06:49→16:31)
[2018-05-25] MEDS: MetFORMIN HCL 500 MG TABLET PO SCH ×2 (06:49→16:31)
[2018-05-25 08:48] VITALS: BP 119/77
[2018-05-25] MEDS: LISINOPRIL 10 MG TABLET PO SCH (09:23)
[2018-05-25] MEDS: HALOPERIDOL 10 MG TABLET PO SCH ×2 (09:23→20:31)
[2018-05-25] MEDS: LORazepam 2 MG TABLET PO PRN ×2 (09:23→16:31)
[2018-05-25 16:23] VITALS: BP 125/77
[2018-05-25] MEDS: ONDANSETRON HCL 4 MG TABLET PO PRN (16:30)
[2018-05-25] MEDS: MIRTAZAPINE 15 MG TABLET PO SCH (20:31)
[2018-05-26] MEDS: MetFORMIN HCL 500 MG TABLET PO SCH ×2 (06:26→16:29)
[2018-05-26] MEDS: FERROUS SULFATE 325 MG EC TABLET PO SCH ×3 (06:26→16:14)
[2018-05-26 06:42] VITALS: BP 116/64
[2018-05-26 08:15] VITALS: BP 118/71
[2018-05-26] MEDS: LISINOPRIL 10 MG TABLET PO SCH (08:55)
[2018-05-26] MEDS: HALOPERIDOL 10 MG TABLET PO SCH ×2 (08:55→20:24)
[2018-05-26] MEDS: LORazepam 2 MG TABLET PO PRN ×2 (09:24→16:14)
[2018-05-26 17:29] VITALS: BP 122/80
[2018-05-26] MEDS: MIRTAZAPINE 15 MG TABLET PO SCH (20:24)
[2018-05-26] MEDS: ZOLPIDEM TARTRATE 10 MG TABLET PO PRN (20:24)
[2018-05-27 06:08] VITALS: BP 116/78
[2018-05-27] MEDS: FERROUS SULFATE 325 MG EC TABLET PO SCH ×3 (06:34→16:24)
[2018-05-27] MEDS: MetFORMIN HCL 500 MG TABLET PO SCH ×2 (06:34→16:24)
[2018-05-27 08:25] VITALS: BP 137/87
[2018-05-27] MEDS: LISINOPRIL 10 MG TABLET PO SCH (09:19)
[2018-05-27] MEDS: HALOPERIDOL 10 MG TABLET PO SCH ×2 (09:19→20:28)
[2018-05-27] MEDS: LORazepam 2 MG TABLET PO PRN (16:24)
[2018-05-27 16:35] VITALS: BP 134/76
[2018-05-27] MEDS: MIRTAZAPINE 15 MG TABLET PO SCH (20:28)
[2018-05-28 05:35] VITALS: BP 136/78
[2018-05-28] MEDS: MetFORMIN HCL 500 MG TABLET PO SCH ×2 (06:42→16:24)
[2018-05-28] MEDS: FERROUS SULFATE 325 MG EC TABLET PO SCH ×3 (06:42→16:24)
[2018-05-28 08:54] VITALS: BP 116/71
[2018-05-28] MEDS: HALOPERIDOL 10 MG TABLET PO SCH ×2 (08:58→20:34)
[2018-05-28] MEDS: LISINOPRIL 10 MG TABLET PO SCH (08:58)
[2018-05-28] MEDS: LORazepam 2 MG TABLET PO PRN ×2 (09:25→16:24)
[2018-05-28 16:15] VITALS: BP 129/76
[2018-05-28] MEDS: MIRTAZAPINE 15 MG TABLET PO SCH (20:34)
[2018-05-29 06:05] VITALS: BP 130/78
[2018-05-29] MEDS: FERROUS SULFATE 325 MG EC TABLET PO SCH ×3 (07:05→17:05)
[2018-05-29] MEDS: MetFORMIN HCL 500 MG TABLET PO SCH ×2 (07:05→17:05)
[2018-05-29 08:19] VITALS: BP 138/74
[2018-05-29] MEDS: HALOPERIDOL 10 MG TABLET PO SCH ×2 (09:38→20:40)
[2018-05-29] MEDS: LISINOPRIL 10 MG TABLET PO SCH (09:39)
[2018-05-29 16:51] VITALS: BP 123/89
[2018-05-29] MEDS: LORazepam 2 MG TABLET PO PRN (17:05)
[2018-05-29] MEDS: IBUPROFEN 400 MG TABLET PO PRN (17:06)
[2018-05-29] MEDS: MIRTAZAPINE 15 MG TABLET PO SCH (20:40)
[2018-05-30 06:09] VITALS: BP 128/84
[2018-05-30] MEDS: FERROUS SULFATE 325 MG EC TABLET PO SCH ×3 (06:48→17:01)
[2018-05-30] MEDS: MetFORMIN HCL 500 MG TABLET PO SCH ×2 (06:48→17:00)
[2018-05-30 08:47] VITALS: BP 167/91
[2018-05-30] MEDS: HALOPERIDOL 10 MG TABLET PO SCH ×2 (09:34→20:26)
[2018-05-30] MEDS: LISINOPRIL 10 MG TABLET PO SCH (09:34)
[2018-05-30] MEDS: LORazepam 2 MG TABLET PO PRN (14:09)
[2018-05-30 16:40] VITALS: BP 115/70
[2018-05-30] MEDS: MIRTAZAPINE 15 MG TABLET PO SCH (20:26)
[2018-05-31 06:32] VITALS: BP 111/75
[2018-05-31] MEDS: MetFORMIN HCL 500 MG TABLET PO SCH ×2 (06:40→17:05)
[2018-05-31] MEDS: FERROUS SULFATE 325 MG EC TABLET PO SCH ×3 (06:40→17:05)
[2018-05-31 08:21] VITALS: BP 128/76
[2018-05-31] MEDS: LISINOPRIL 10 MG TABLET PO SCH (09:32)
[2018-05-31] MEDS: HALOPERIDOL 10 MG TABLET PO SCH ×2 (09:32→20:38)
[2018-05-31] MEDS: LORazepam 2 MG TABLET PO PRN (14:11)
[2018-05-31 16:22] VITALS: BP 111/70
[2018-05-31] MEDS: MIRTAZAPINE 15 MG TABLET PO SCH (20:38)
[2018-06-01] MEDS: MetFORMIN HCL 500 MG TABLET PO SCH ×2 (06:41→17:09)
[2018-06-01] MEDS: FERROUS SULFATE 325 MG EC TABLET PO SCH ×3 (06:41→17:09)
[2018-06-01 07:13] VITALS: BP 126/74
[2018-06-01 08:47] VITALS: BP 121/87
[2018-06-01] MEDS: LISINOPRIL 10 MG TABLET PO SCH (09:19)
[2018-06-01] MEDS: HALOPERIDOL 10 MG TABLET PO SCH ×2 (09:19→20:40)
[2018-06-01] MEDS: LORazepam 2 MG TABLET PO PRN (09:45)
[2018-06-01 16:14] VITALS: BP 127/89
[2018-06-01] MEDS: MIRTAZAPINE 15 MG TABLET PO SCH (20:40)
[2018-06-02 06:04] VITALS: BP 116/63
[2018-06-02] MEDS: FERROUS SULFATE 325 MG EC TABLET PO SCH ×3 (06:10→16:14)
[2018-06-02] MEDS: MetFORMIN HCL 500 MG TABLET PO SCH ×2 (06:10→16:26)
[2018-06-02] MEDS: LORazepam 2 MG TABLET PO PRN ×2 (07:01→16:14)
[2018-06-02] MEDS: HALOPERIDOL 10 MG TABLET PO SCH ×2 (09:00→20:40)
[2018-06-02] MEDS: LISINOPRIL 10 MG TABLET PO SCH (09:00)
[2018-06-02 09:01] VITALS: BP 122/79
[2018-06-02 16:40] VITALS: BP 125/92
[2018-06-02] MEDS: MIRTAZAPINE 15 MG TABLET PO SCH (20:36)
[2018-06-03 05:59] VITALS: BP 138/72
[2018-06-03] MEDS: FERROUS SULFATE 325 MG EC TABLET PO SCH ×3 (06:01→16:27)
[2018-06-03] MEDS: MetFORMIN HCL 500 MG TABLET PO SCH ×2 (06:01→16:27)
[2018-06-03 08:43] VITALS: BP 125/98
[2018-06-03] MEDS: HALOPERIDOL 10 MG TABLET PO SCH ×2 (09:47→20:34)
[2018-06-03] MEDS: LISINOPRIL 10 MG TABLET PO SCH (09:47)
[2018-06-03] MEDS: LORazepam 2 MG TABLET PO PRN (14:36)
[2018-06-03 16:20] VITALS: BP 127/69
[2018-06-03] MEDS: MIRTAZAPINE 15 MG TABLET PO SCH (20:34)
[2018-06-04] MEDS: FERROUS SULFATE 325 MG EC TABLET PO SCH ×3 (06:37→16:17)
[2018-06-04] MEDS: MetFORMIN HCL 500 MG TABLET PO SCH ×2 (06:37→16:17)
[2018-06-04] MEDS: LISINOPRIL 10 MG TABLET PO SCH (08:45)
[2018-06-04] MEDS: HALOPERIDOL 10 MG TABLET PO SCH ×2 (08:45→20:47)
[2018-06-04 13:09] VITALS: BP 128/73
[2018-06-04] MEDS: LORazepam 2 MG TABLET PO PRN (16:17)
[2018-06-04 16:20] VITALS: BP 122/80
[2018-06-04] MEDS: MIRTAZAPINE 15 MG TABLET PO SCH (20:47)
[2018-06-05 02:59] VITALS: BP 138/79
[2018-06-05] MEDS: FERROUS SULFATE 325 MG EC TABLET PO SCH ×3 (06:47→17:00)
[2018-06-05] MEDS: MetFORMIN HCL 500 MG TABLET PO SCH ×2 (06:47→17:00)
[2018-06-05 08:15] VITALS: BP 146/81
[2018-06-05 08:40] VITALS: BP 139/87
[2018-06-05] MEDS: HALOPERIDOL 10 MG TABLET PO SCH ×2 (09:09→21:29)
[2018-06-05] MEDS: LORazepam 2 MG TABLET PO PRN (09:09)
[2018-06-05] MEDS: LISINOPRIL 10 MG TABLET PO SCH (09:09)
[2018-06-05 16:18] VITALS: BP 137/87
[2018-06-05] MEDS: MIRTAZAPINE 15 MG TABLET PO SCH (21:29)
[2018-06-06 06:00] VITALS: BP 140/77
[2018-06-06] MEDS: MetFORMIN HCL 500 MG TABLET PO SCH ×2 (06:59→16:52)
[2018-06-06] MEDS: FERROUS SULFATE 325 MG EC TABLET PO SCH ×3 (06:59→16:52)
[2018-06-06 08:31] VITALS: BP 132/89
[2018-06-06] MEDS: HALOPERIDOL 10 MG TABLET PO SCH ×2 (10:03→20:44)
[2018-06-06] MEDS: LISINOPRIL 10 MG TABLET PO SCH (10:03)
[2018-06-06 16:29] VITALS: BP 141/89
[2018-06-06] MEDS: MIRTAZAPINE 15 MG TABLET PO SCH (20:44)
[2018-06-07] MEDS: MetFORMIN HCL 500 MG TABLET PO SCH ×2 (06:24→16:23)
[2018-06-07] MEDS: FERROUS SULFATE 325 MG EC TABLET PO SCH ×3 (06:24→16:12)
[2018-06-07 06:28] VITALS: BP 120/66
[2018-06-07] MEDS: LISINOPRIL 10 MG TABLET PO SCH (08:47)
[2018-06-07] MEDS: HALOPERIDOL 10 MG TABLET PO SCH ×2 (08:47→20:25)
[2018-06-07] MEDS: LORazepam 2 MG TABLET PO PRN ×2 (08:53→14:22)
[2018-06-07 08:56] VITALS: BP 132/86
[2018-06-07] MEDS: OLANZapine 5 MG RAPDIS TABLET PO PRN (16:12)
[2018-06-07 16:36] VITALS: BP 124/87
[2018-06-07] MEDS: MIRTAZAPINE 15 MG TABLET PO SCH (20:25)
[2018-06-07] MEDS: ZOLPIDEM TARTRATE 10 MG TABLET PO PRN (20:27)
[2018-06-08] MEDS: FERROUS SULFATE 325 MG EC TABLET PO SCH ×3 (06:55→16:22)
[2018-06-08] MEDS: MetFORMIN HCL 500 MG TABLET PO SCH ×2 (06:55→16:22)
[2018-06-08 07:24] VITALS: BP 128/83
[2018-06-08 08:36] VITALS: BP 128/76
[2018-06-08] MEDS: HALOPERIDOL 10 MG TABLET PO SCH ×2 (10:12→20:25)
[2018-06-08] MEDS: LISINOPRIL 10 MG TABLET PO SCH (10:12)
[2018-06-08] MEDS: LORazepam 2 MG TABLET PO PRN ×2 (10:12→16:22)
[2018-06-08 16:23] VITALS: BP 136/80
[2018-06-08] MEDS: MIRTAZAPINE 15 MG TABLET PO SCH (20:25)
[2018-06-09 05:09] VITALS: BP 130/86
[2018-06-09] MEDS: FERROUS SULFATE 325 MG EC TABLET PO SCH ×3 (06:36→17:03)
[2018-06-09] MEDS: MetFORMIN HCL 500 MG TABLET PO SCH ×2 (06:36→17:03)
[2018-06-09] MEDS: LISINOPRIL 10 MG TABLET PO SCH (09:10)
[2018-06-09] MEDS: HALOPERIDOL 10 MG TABLET PO SCH ×2 (09:10→20:09)
[2018-06-09 09:46] VITALS: BP 135/87
[2018-06-09] MEDS: LORazepam 2 MG TABLET PO PRN (13:51)
[2018-06-09 16:34] VITALS: BP 147/85
[2018-06-09] MEDS: MIRTAZAPINE 15 MG TABLET PO SCH (20:08)
[2018-06-10 06:08] VITALS: BP 131/86
[2018-06-10] MEDS: MetFORMIN HCL 500 MG TABLET PO SCH ×2 (06:42→16:32)
[2018-06-10] MEDS: FERROUS SULFATE 325 MG EC TABLET PO SCH ×3 (06:43→16:31)
[2018-06-10 07:01] LABS: BASOPHILS % (AUTO) 0.7 % (0.0-2.0); EOSINOPHILS % (AUTO) 4.5 % (1.0-6.0); HEMATOCRIT 34.9 % (41-53); HEMOGLOBIN 12.3 g/dL (13.5-17.5); LYMPHOCYTES # (AUTO) 1.5 K/uL (1.0-4.8); LYMPHOCYTES % (AUTO) 33.5 % (22.0-44.0); MEAN CORPUSCULAR HGB CONC 35.1 G/dL (31.0-37.0); MEAN CORPUSCULAR VOLUME 91 fL (80-100); MONOCYTES # (AUTO) 0.3 K/uL (0.1-1.0); NEUTROPHILS # (AUTO) 2.5 K/uL (1.8-7.7); NEUTROPHILS % (AUTO) 55.3 % (40.0-70.0); PLATELET COUNT (AUTO) 169 K/uL (150-450); RED BLOOD CELL COUNT(AUTO) 3.83 MIL/uL (4.50-5.90); RED CELL DISTRIBUTION WIDTH 14.2 % (11.5-14.5)
[2018-06-10 07:22] LABS: ANION GAP 3 mmol/L (8-16); CARBON DIOXIDE 33 mmol/L (22-29); CHLORIDE 103 mmol/L (98-107); CREATININE 0.88 mg/dL (0.60-1.30); GLOMERULAR FILTR. RATE CALC > 60 mL/min (>60); GLUCOSE,RANDOM 80 mg/dL (70-110); POTASSIUM 4.6 mmol/L (3.5-5.1); SODIUM SERUM 139 mmol/L (136-145); UREA NITROGEN, BLOOD 21 mg/dL (7-18)
[2018-06-10 08:57] VITALS: BP 137/90
[2018-06-10] MEDS: HALOPERIDOL 10 MG TABLET PO SCH ×2 (09:12→20:15)
[2018-06-10] MEDS: LISINOPRIL 10 MG TABLET PO SCH (09:13)
[2018-06-10] MEDS: LORazepam 2 MG TABLET PO PRN (14:57)
[2018-06-10 16:18] VITALS: BP 123/78
[2018-06-10] MEDS: MIRTAZAPINE 15 MG TABLET PO SCH (20:16)
[2018-06-11 05:44] VITALS: BP 120/81
[2018-06-11] MEDS: FERROUS SULFATE 325 MG EC TABLET PO SCH ×3 (06:46→16:18)
[2018-06-11] MEDS: MetFORMIN HCL 500 MG TABLET PO SCH ×2 (06:46→16:18)
[2018-06-11] MEDS: HALOPERIDOL 10 MG TABLET PO SCH ×2 (08:14→20:27)
[2018-06-11] MEDS: LISINOPRIL 10 MG TABLET PO SCH (08:15)
[2018-06-11 08:16] VITALS: BP 140/75
[2018-06-11] MEDS: LORazepam 2 MG TABLET PO PRN ×2 (11:23→16:18)
[2018-06-11 16:40] VITALS: BP 127/70
[2018-06-11] MEDS: MIRTAZAPINE 15 MG TABLET PO SCH (20:27)
[2018-06-12 05:45] VITALS: BP 126/72
[2018-06-12] MEDS: MetFORMIN HCL 500 MG TABLET PO SCH ×2 (06:54→17:03)
[2018-06-12] MEDS: FERROUS SULFATE 325 MG EC TABLET PO SCH ×3 (06:54→17:03)
[2018-06-12] MEDS: HALOPERIDOL 10 MG TABLET PO SCH ×2 (08:22→21:27)
[2018-06-12] MEDS: LISINOPRIL 10 MG TABLET PO SCH (08:22)
[2018-06-12 08:38] VITALS: BP 131/71
[2018-06-12] MEDS: IBUPROFEN 400 MG TABLET PO PRN (09:14)
[2018-06-12 16:00] VITALS: BP 135/77
[2018-06-12] MEDS: MIRTAZAPINE 15 MG TABLET PO SCH (21:27)
[2018-06-13] MEDS: MetFORMIN HCL 500 MG TABLET PO SCH ×2 (06:40→17:00)
[2018-06-13] MEDS: FERROUS SULFATE 325 MG EC TABLET PO SCH ×3 (06:40→17:00)
[2018-06-13 07:10] VITALS: BP 114/86
[2018-06-13] MEDS: LISINOPRIL 10 MG TABLET PO SCH (09:02)
[2018-06-13 09:05] VITALS: BP 135/71
[2018-06-13] MEDS: HALOPERIDOL 10 MG TABLET PO SCH ×2 (09:09→20:35)
[2018-06-13 17:05] VITALS: BP 131/77
[2018-06-13] MEDS: MIRTAZAPINE 15 MG TABLET PO SCH (20:35)
[2018-06-14 04:26] VITALS: BP 126/80
[2018-06-14] MEDS: MetFORMIN HCL 500 MG TABLET PO SCH ×2 (07:23→17:05)
[2018-06-14] MEDS: FERROUS SULFATE 325 MG EC TABLET PO SCH ×3 (07:23→17:05)
[2018-06-14 08:00] VITALS: BP 137/67
[2018-06-14] MEDS: LISINOPRIL 10 MG TABLET PO SCH (08:42)
[2018-06-14] MEDS: HALOPERIDOL 10 MG TABLET PO SCH ×2 (08:42→20:44)
[2018-06-14] MEDS: LORazepam 2 MG TABLET PO PRN (13:51)
[2018-06-14 16:00] VITALS: BP 145/89
[2018-06-14] MEDS: MIRTAZAPINE 15 MG TABLET PO SCH (20:44)
[2018-06-15 06:06] VITALS: BP 130/80
[2018-06-15] MEDS: MetFORMIN HCL 500 MG TABLET PO SCH ×2 (07:01→17:12)
[2018-06-15] MEDS: FERROUS SULFATE 325 MG EC TABLET PO SCH ×3 (07:01→17:12)
[2018-06-15 08:35] VITALS: BP 140/99
[2018-06-15] MEDS: HALOPERIDOL 10 MG TABLET PO SCH ×2 (09:21→20:39)
[2018-06-15] MEDS: LISINOPRIL 10 MG TABLET PO SCH (09:21)
[2018-06-15] MEDS: LORazepam 2 MG TABLET PO PRN ×2 (11:30→15:51)
[2018-06-15 16:14] VITALS: BP 139/89
[2018-06-15] MEDS: MIRTAZAPINE 15 MG TABLET PO SCH (20:38)
[2018-06-16] MEDS: FERROUS SULFATE 325 MG EC TABLET PO SCH ×3 (05:57→17:05)
[2018-06-16] MEDS: MetFORMIN HCL 500 MG TABLET PO SCH ×2 (05:57→17:05)
[2018-06-16 06:04] VITALS: BP 133/88
[2018-06-16 09:37] VITALS: BP 129/80
[2018-06-16] MEDS: HALOPERIDOL 10 MG TABLET PO SCH ×2 (09:47→20:51)
[2018-06-16] MEDS: LISINOPRIL 10 MG TABLET PO SCH (09:47)
[2018-06-16] MEDS: LORazepam 2 MG TABLET PO PRN (12:12)
[2018-06-16 17:01] VITALS: BP 137/86
[2018-06-16] MEDS: MIRTAZAPINE 15 MG TABLET PO SCH (20:50)
[2018-06-17 05:59] VITALS: BP 132/84
[2018-06-17] MEDS: MetFORMIN HCL 500 MG TABLET PO SCH ×2 (06:50→16:18)
[2018-06-17] MEDS: FERROUS SULFATE 325 MG EC TABLET PO SCH ×3 (06:50→16:18)
[2018-06-17 08:37] VITALS: BP 132/68
[2018-06-17] MEDS: HALOPERIDOL 10 MG TABLET PO SCH ×2 (09:00→20:53)
[2018-06-17] MEDS: LISINOPRIL 10 MG TABLET PO SCH (09:00)
[2018-06-17] MEDS: LORazepam 2 MG TABLET PO PRN (16:18)
[2018-06-17 16:23] VITALS: BP 122/91
[2018-06-17] MEDS: MIRTAZAPINE 15 MG TABLET PO SCH (20:53)
[2018-06-17 21:19] VITALS: BP 120/70
[2018-06-18 07:00] VITALS: BP 136/89
[2018-06-18] MEDS: MetFORMIN HCL 500 MG TABLET PO SCH ×2 (07:09→16:23)
[2018-06-18] MEDS: FERROUS SULFATE 325 MG EC TABLET PO SCH ×3 (07:09→16:09)
[2018-06-18 08:19] VITALS: BP 126/88
[2018-06-18] MEDS: LISINOPRIL 10 MG TABLET PO SCH (09:00)
[2018-06-18] MEDS: HALOPERIDOL 10 MG TABLET PO SCH ×2 (09:00→20:21)
[2018-06-18] MEDS: LORazepam 2 MG TABLET PO PRN ×2 (11:21→16:09)
[2018-06-18 16:00] VITALS: BP 120/87
[2018-06-18] MEDS: MIRTAZAPINE 15 MG TABLET PO SCH (20:21)
[2018-06-19 05:53] VITALS: BP 128/79
[2018-06-19] MEDS: FERROUS SULFATE 325 MG EC TABLET PO SCH ×3 (06:57→16:18)
[2018-06-19] MEDS: MetFORMIN HCL 500 MG TABLET PO SCH ×2 (06:57→16:18)
[2018-06-19 08:25] VITALS: BP 121/76
[2018-06-19] MEDS: LISINOPRIL 10 MG TABLET PO SCH (08:59)
[2018-06-19] MEDS: LORazepam 2 MG TABLET PO PRN ×2 (08:59→16:18)
[2018-06-19] MEDS: HALOPERIDOL 10 MG TABLET PO SCH ×2 (08:59→21:28)
[2018-06-19 17:38] VITALS: BP 129/75
[2018-06-19] MEDS: MIRTAZAPINE 15 MG TABLET PO SCH (21:28)
[2018-06-20] MEDS: MetFORMIN HCL 500 MG TABLET PO SCH ×2 (06:29→16:32)
[2018-06-20] MEDS: FERROUS SULFATE 325 MG EC TABLET PO SCH ×3 (06:29→16:32)
[2018-06-20 06:35] VITALS: BP 124/73
[2018-06-20 09:27] VITALS: BP 133/65
[2018-06-20] MEDS: LISINOPRIL 10 MG TABLET PO SCH (10:38)
[2018-06-20] MEDS: HALOPERIDOL 10 MG TABLET PO SCH ×2 (13:13→21:30)
[2018-06-20 17:14] VITALS: BP 130/75
[2018-06-20] MEDS: MIRTAZAPINE 15 MG TABLET PO SCH (21:30)
[2018-06-21 00:55] VITALS: BP 134/87
[2018-06-21] MEDS: MetFORMIN HCL 500 MG TABLET PO SCH ×2 (07:06→17:10)
[2018-06-21] MEDS: FERROUS SULFATE 325 MG EC TABLET PO SCH ×3 (07:06→17:10)
[2018-06-21 08:28] VITALS: BP 117/84
[2018-06-21] MEDS: HALOPERIDOL 10 MG TABLET PO SCH ×2 (08:50→20:20)
[2018-06-21] MEDS: LISINOPRIL 10 MG TABLET PO SCH (08:50)
[2018-06-21 16:31] VITALS: BP 126/80
[2018-06-21] MEDS: MIRTAZAPINE 15 MG TABLET PO SCH (20:20)
[2018-06-22 05:49] VITALS: BP 124/84
[2018-06-22] MEDS: MetFORMIN HCL 500 MG TABLET PO SCH ×2 (06:50→17:05)
[2018-06-22] MEDS: FERROUS SULFATE 325 MG EC TABLET PO SCH ×3 (06:50→17:05)
[2018-06-22 08:32] VITALS: BP 139/81
[2018-06-22] MEDS: LISINOPRIL 10 MG TABLET PO SCH (09:05)
[2018-06-22] MEDS: HALOPERIDOL 10 MG TABLET PO SCH ×2 (09:05→20:32)
[2018-06-22 16:22] VITALS: BP 125/84
[2018-06-22] MEDS: MIRTAZAPINE 15 MG TABLET PO SCH (20:32)
[2018-06-23 00:45] VITALS: BP 120/70
[2018-06-23] MEDS: FERROUS SULFATE 325 MG EC TABLET PO SCH ×3 (06:16→16:42)
[2018-06-23] MEDS: MetFORMIN HCL 500 MG TABLET PO SCH ×2 (06:16→16:42)
[2018-06-23 08:24] VITALS: BP 139/86
[2018-06-23] MEDS: LISINOPRIL 10 MG TABLET PO SCH (08:28)
[2018-06-23] MEDS: HALOPERIDOL 10 MG TABLET PO SCH ×2 (08:28→20:29)
[2018-06-23 09:50] VITALS: BP 147/89
[2018-06-23 16:08] VITALS: BP 128/81
[2018-06-23] MEDS: MIRTAZAPINE 15 MG TABLET PO SCH (20:30)
[2018-06-24 02:09] VITALS: BP 113/71
[2018-06-24 03:08] VITALS: BP 138/82
[2018-06-24] MEDS: FERROUS SULFATE 325 MG EC TABLET PO SCH ×3 (06:28→16:23)
[2018-06-24] MEDS: MetFORMIN HCL 500 MG TABLET PO SCH ×3 (06:50→16:23)
[2018-06-24 08:27] VITALS: BP 139/86
[2018-06-24] MEDS: LISINOPRIL 10 MG TABLET PO SCH (08:34)
[2018-06-24] MEDS: HALOPERIDOL 10 MG TABLET PO SCH ×2 (08:35→20:12)
[2018-06-24] MEDS: LORazepam 2 MG TABLET PO PRN ×2 (12:25→16:34)
[2018-06-24] MEDS: OLANZapine 5 MG RAPDIS TABLET PO PRN (12:25)
[2018-06-24 16:20] VITALS: BP 123/90
[2018-06-24] MEDS: MIRTAZAPINE 15 MG TABLET PO SCH (20:12)
[2018-06-25 06:18] VITALS: BP 132/89
[2018-06-25] MEDS: FERROUS SULFATE 325 MG EC TABLET PO SCH ×3 (06:39→16:18)
[2018-06-25] MEDS: MetFORMIN HCL 500 MG TABLET PO SCH ×2 (06:39→17:30)
[2018-06-25] MEDS ORDERED: HALO10TA3 PO (08:02)
[2018-06-25] MEDS ORDERED: LISI-661 PO (08:02)
[2018-06-25] MEDS ORDERED: MIRT15 PO (08:02)
[2018-06-25] MEDS ORDERED: FERR-89 PO (08:02)
[2018-06-25] MEDS ORDERED: METF500T PO (08:02)
[2018-06-25 08:11] VITALS: BP 110/75
[2018-06-25] MEDS: HALOPERIDOL 10 MG TABLET PO SCH ×2 (08:15→20:37)
[2018-06-25] MEDS: LISINOPRIL 10 MG TABLET PO SCH (08:15)
[2018-06-25] MEDS: LORazepam 2 MG TABLET PO PRN (10:00)
[2018-06-25] MEDS: IBUPROFEN 400 MG TABLET PO PRN (10:05)
[2018-06-25 10:12] VITALS: BP 131/81
[2018-06-25 16:05] VITALS: BP 126/80
[2018-06-25] MEDS: MIRTAZAPINE 15 MG TABLET PO SCH (20:37)
[2018-06-26 06:02] VITALS: BP 124/82
[2018-06-26] MEDS: MetFORMIN HCL 500 MG TABLET PO SCH ×2 (06:57→16:55)
[2018-06-26] MEDS: FERROUS SULFATE 325 MG EC TABLET PO SCH ×3 (06:57→16:55)
[2018-06-26 08:28] VITALS: BP 115/87
[2018-06-26] MEDS: LISINOPRIL 10 MG TABLET PO SCH (08:57)
[2018-06-26] MEDS: HALOPERIDOL 10 MG TABLET PO SCH ×2 (08:57→20:24)
[2018-06-26] MEDS ORDERED: DiphenhydrAMINE HCL 50 MG/ML VIAL ONE (09:56)
[2018-06-26] MEDS ORDERED: HALOPERIDOL LACTATE 5 MG/ML VIAL ONE (09:56)
[2018-06-26] MEDS ORDERED: LORazepam 2 MG/ML VIAL ONE (09:56)
[2018-06-26] MEDS ORDERED: HALOPERIDOL LACTATE 5 MG/ML VIAL IM ONE (10:15)
[2018-06-26] MEDS ORDERED: DiphenhydrAMINE HCL 50 MG/ML VIAL IM ONE (10:15)
[2018-06-26] MEDS ORDERED: LORazepam 2 MG/ML VIAL IM ONE (10:15)
[2018-06-26 16:26] VITALS: BP 140/84
[2018-06-26] MEDS: MIRTAZAPINE 15 MG TABLET PO SCH (20:24)
[2018-06-27 05:46] VITALS: BP 129/82
[2018-06-27] MEDS: MetFORMIN HCL 500 MG TABLET PO SCH ×2 (06:43→16:52)
[2018-06-27] MEDS: FERROUS SULFATE 325 MG EC TABLET PO SCH ×3 (06:43→16:52)
[2018-06-27 08:14] VITALS: BP 109/59
[2018-06-27] MEDS: HALOPERIDOL 10 MG TABLET PO SCH ×2 (08:22→20:25)
[2018-06-27] MEDS: LISINOPRIL 10 MG TABLET PO SCH (08:22)
[2018-06-27 08:24] VITALS: BP 139/85
[2018-06-27] MEDS: LORazepam 2 MG TABLET PO PRN (08:25)
[2018-06-27 16:25] VITALS: BP 123/75
[2018-06-27] MEDS: MIRTAZAPINE 15 MG TABLET PO SCH (20:25)
[2018-06-28] MEDS: MetFORMIN HCL 500 MG TABLET PO SCH ×2 (06:43→17:03)
[2018-06-28] MEDS: FERROUS SULFATE 325 MG EC TABLET PO SCH ×3 (06:43→17:03)
[2018-06-28 07:12] VITALS: BP 115/72
[2018-06-28 08:09] VITALS: BP 129/76
[2018-06-28] MEDS: LISINOPRIL 10 MG TABLET PO SCH (08:46)
[2018-06-28] MEDS: HALOPERIDOL 10 MG TABLET PO SCH ×2 (08:46→20:36)
[2018-06-28] MEDS: LORazepam 2 MG TABLET PO PRN (08:47)
[2018-06-28 16:26] VITALS: BP 137/80
[2018-06-28] MEDS: MIRTAZAPINE 15 MG TABLET PO SCH (20:36)
[2018-06-29 06:18] VITALS: BP 132/78
[2018-06-29] MEDS: FERROUS SULFATE 325 MG EC TABLET PO SCH ×3 (06:54→16:52)
[2018-06-29] MEDS: MetFORMIN HCL 500 MG TABLET PO SCH ×2 (06:54→16:52)
[2018-06-29] MEDS: LISINOPRIL 10 MG TABLET PO SCH (08:54)
[2018-06-29] MEDS: HALOPERIDOL 10 MG TABLET PO SCH ×2 (08:54→20:45)
[2018-06-29 08:55] VITALS: BP 125/65
[2018-06-29 16:35] VITALS: BP 100/59
[2018-06-29] MEDS: MIRTAZAPINE 15 MG TABLET PO SCH (20:45)
[2018-06-30] MEDS: FERROUS SULFATE 325 MG EC TABLET PO SCH ×3 (06:44→17:01)
[2018-06-30] MEDS: MetFORMIN HCL 500 MG TABLET PO SCH ×2 (06:44→17:02)
[2018-06-30 08:51] VITALS: BP 120/76
[2018-06-30] MEDS: HALOPERIDOL 10 MG TABLET PO SCH ×2 (08:51→21:12)
[2018-06-30] MEDS: LISINOPRIL 10 MG TABLET PO SCH (08:51)
[2018-06-30] MEDS: LORazepam 2 MG TABLET PO PRN (10:37)
[2018-06-30 17:35] VITALS: BP 120/71
[2018-06-30] MEDS: MIRTAZAPINE 15 MG TABLET PO SCH (21:12)
[2018-07-01] MEDS: FERROUS SULFATE 325 MG EC TABLET PO SCH ×3 (06:23→16:58)
[2018-07-01] MEDS: MetFORMIN HCL 500 MG TABLET PO SCH ×2 (06:23→16:58)
[2018-07-01 06:53] VITALS: BP 125/68
[2018-07-01] MEDS: LISINOPRIL 10 MG TABLET PO SCH (08:44)
[2018-07-01] MEDS: LORazepam 2 MG TABLET PO PRN (08:44)
[2018-07-01] MEDS: HALOPERIDOL 10 MG TABLET PO SCH ×2 (08:44→20:32)
[2018-07-01 09:05] VITALS: BP 115/74
[2018-07-01 16:42] VITALS: BP 114/83
[2018-07-01] MEDS: MIRTAZAPINE 15 MG TABLET PO SCH (20:32)
[2018-07-02 03:56] VITALS: BP 137/84
[2018-07-02] MEDS: MetFORMIN HCL 500 MG TABLET PO SCH ×2 (06:47→16:53)
[2018-07-02] MEDS: FERROUS SULFATE 325 MG EC TABLET PO SCH ×3 (06:47→16:53)
[2018-07-02] MEDS: LISINOPRIL 10 MG TABLET PO SCH (08:21)
[2018-07-02] MEDS: HALOPERIDOL 10 MG TABLET PO SCH ×2 (08:22→21:02)
[2018-07-02 08:28] VITALS: BP 119/64
[2018-07-02] MEDS: LORazepam 2 MG TABLET PO PRN (08:35)
[2018-07-02 17:47] VITALS: BP 127/75
[2018-07-02] MEDS: MIRTAZAPINE 15 MG TABLET PO SCH (21:02)
[2018-07-03 05:57] VITALS: BP 115/60
[2018-07-03] MEDS: FERROUS SULFATE 325 MG EC TABLET PO SCH ×3 (06:55→16:59)
[2018-07-03] MEDS: MetFORMIN HCL 500 MG TABLET PO SCH ×2 (06:55→16:59)
[2018-07-03 08:18] VITALS: BP 148/85
[2018-07-03] MEDS: HALOPERIDOL 10 MG TABLET PO SCH ×2 (09:18→21:03)
[2018-07-03] MEDS: LISINOPRIL 10 MG TABLET PO SCH (09:19)
[2018-07-03] MEDS: LORazepam 2 MG TABLET PO PRN (16:59)
[2018-07-03 17:47] VITALS: BP 135/85
[2018-07-03] MEDS: MIRTAZAPINE 15 MG TABLET PO SCH (21:03)
[2018-07-04 06:26] VITALS: BP 137/75
[2018-07-04] MEDS: FERROUS SULFATE 325 MG EC TABLET PO SCH ×3 (06:55→16:23)
[2018-07-04] MEDS: MetFORMIN HCL 500 MG TABLET PO SCH ×2 (06:55→16:23)
[2018-07-04 08:26] VITALS: BP 132/90
[2018-07-04] MEDS: HALOPERIDOL 10 MG TABLET PO SCH ×2 (08:33→20:09)
[2018-07-04] MEDS: LISINOPRIL 10 MG TABLET PO SCH (08:33)
[2018-07-04] MEDS: LORazepam 2 MG TABLET PO PRN (09:58)
[2018-07-04 16:00] VITALS: BP 110/80
[2018-07-04] MEDS: MIRTAZAPINE 15 MG TABLET PO SCH (20:09)
[2018-07-05 00:10] VITALS: BP 124/74
[2018-07-05] MEDS: MetFORMIN HCL 500 MG TABLET PO SCH ×2 (06:52→17:04)
[2018-07-05] MEDS: FERROUS SULFATE 325 MG EC TABLET PO SCH ×3 (06:52→17:04)
[2018-07-05] MEDS: LISINOPRIL 10 MG TABLET PO SCH (08:24)
[2018-07-05] MEDS: HALOPERIDOL 10 MG TABLET PO SCH ×2 (08:24→20:35)
[2018-07-05 08:37] VITALS: BP 130/90
[2018-07-05] MEDS: LORazepam 2 MG TABLET PO PRN (15:08)
[2018-07-05 16:19] VITALS: BP 140/88
[2018-07-05] MEDS: MIRTAZAPINE 15 MG TABLET PO SCH (20:35)
[2018-07-06 03:19] VITALS: BP 132/86
[2018-07-06] MEDS: FERROUS SULFATE 325 MG EC TABLET PO SCH ×3 (06:51→16:49)
[2018-07-06] MEDS: MetFORMIN HCL 500 MG TABLET PO SCH ×2 (06:51→16:49)
[2018-07-06 08:13] VITALS: BP 117/75
[2018-07-06] MEDS: HALOPERIDOL 10 MG TABLET PO SCH ×2 (08:56→20:14)
[2018-07-06] MEDS: LISINOPRIL 10 MG TABLET PO SCH (08:56)
[2018-07-06 16:28] VITALS: BP 122/77
[2018-07-06] MEDS: LORazepam 2 MG TABLET PO PRN (16:49)
[2018-07-06] MEDS: MIRTAZAPINE 15 MG TABLET PO SCH (20:14)
[2018-07-07] MEDS: FERROUS SULFATE 325 MG EC TABLET PO SCH ×3 (06:50→16:19)
[2018-07-07] MEDS: MetFORMIN HCL 500 MG TABLET PO SCH ×2 (06:50→16:19)
[2018-07-07 08:00] VITALS: BP 116/64
[2018-07-07] MEDS: HALOPERIDOL 10 MG TABLET PO SCH ×2 (09:02→20:56)
[2018-07-07] MEDS: LISINOPRIL 10 MG TABLET PO SCH (09:02)
[2018-07-07] MEDS: LORazepam 2 MG TABLET PO PRN (16:19)
[2018-07-07 19:35] VITALS: BP 122/76
[2018-07-07] MEDS: MIRTAZAPINE 15 MG TABLET PO SCH (20:56)
[2018-07-08 00:42] VITALS: BP 124/82
[2018-07-08] MEDS: FERROUS SULFATE 325 MG EC TABLET PO SCH ×3 (06:47→16:34)
[2018-07-08] MEDS: MetFORMIN HCL 500 MG TABLET PO SCH ×2 (06:48→16:34)
[2018-07-08] MEDS: LISINOPRIL 10 MG TABLET PO SCH (08:29)
[2018-07-08] MEDS: HALOPERIDOL 10 MG TABLET PO SCH ×2 (08:29→20:29)
[2018-07-08 08:40] VITALS: BP 136/81
[2018-07-08] MEDS: LORazepam 2 MG TABLET PO PRN (16:35)
[2018-07-08 17:15] VITALS: BP 117/82
[2018-07-08 17:36] VITALS: BP 117/82
[2018-07-08] MEDS: MIRTAZAPINE 15 MG TABLET PO SCH (20:29)
[2018-07-09 05:55] VITALS: BP 116/84
[2018-07-09] MEDS: FERROUS SULFATE 325 MG EC TABLET PO SCH ×3 (06:04→16:22)
[2018-07-09] MEDS: MetFORMIN HCL 500 MG TABLET PO SCH ×2 (06:04→16:22)
[2018-07-09 08:00] VITALS: BP 137/79
[2018-07-09] MEDS: HALOPERIDOL 10 MG TABLET PO SCH ×2 (08:30→20:20)
[2018-07-09] MEDS: LISINOPRIL 10 MG TABLET PO SCH (08:30)
[2018-07-09] MEDS: LORazepam 2 MG TABLET PO PRN ×2 (09:56→16:22)
[2018-07-09 16:24] VITALS: BP 110/77
[2018-07-09] MEDS: MIRTAZAPINE 15 MG TABLET PO SCH (20:20)
[2018-07-10 06:33] VITALS: BP 116/80
[2018-07-10] MEDS: FERROUS SULFATE 325 MG EC TABLET PO SCH ×3 (07:00→16:25)
[2018-07-10] MEDS: MetFORMIN HCL 500 MG TABLET PO SCH ×2 (07:00→16:24)
[2018-07-10] MEDS: HALOPERIDOL 10 MG TABLET PO SCH ×2 (08:16→20:20)
[2018-07-10] MEDS: LISINOPRIL 10 MG TABLET PO SCH (08:16)
[2018-07-10 08:37] VITALS: BP 126/84
[2018-07-10] MEDS: LORazepam 2 MG TABLET PO PRN (10:19)
[2018-07-10 16:42] VITALS: BP 131/90
[2018-07-10] MEDS: MIRTAZAPINE 15 MG TABLET PO SCH (20:20)
[2018-07-11 04:29] VITALS: BP 126/81
[2018-07-11] MEDS: FERROUS SULFATE 325 MG EC TABLET PO SCH ×3 (06:41→16:34)
[2018-07-11] MEDS: MetFORMIN HCL 500 MG TABLET PO SCH ×2 (06:42→16:34)
[2018-07-11 08:00] VITALS: BP 126/77
[2018-07-11] MEDS: HALOPERIDOL 10 MG TABLET PO SCH ×2 (08:45→20:26)
[2018-07-11] MEDS: LISINOPRIL 10 MG TABLET PO SCH (08:46)
[2018-07-11] MEDS: LORazepam 2 MG TABLET PO PRN (10:00)
[2018-07-11 16:47] VITALS: BP 127/80
[2018-07-11] MEDS: MIRTAZAPINE 15 MG TABLET PO SCH (20:26)
[2018-07-12] MEDS: FERROUS SULFATE 325 MG EC TABLET PO SCH ×3 (06:28→17:05)
[2018-07-12] MEDS: MetFORMIN HCL 500 MG TABLET PO SCH ×2 (06:29→17:05)
[2018-07-12 07:28] VITALS: BP 115/75
[2018-07-12 08:00] VITALS: BP 121/63
[2018-07-12] MEDS: HALOPERIDOL 10 MG TABLET PO SCH ×2 (08:44→20:19)
[2018-07-12] MEDS: LISINOPRIL 10 MG TABLET PO SCH (08:45)
[2018-07-12] MEDS: LORazepam 2 MG TABLET PO PRN (11:07)
[2018-07-12 18:05] VITALS: BP 119/60
[2018-07-12] MEDS: MIRTAZAPINE 15 MG TABLET PO SCH (20:19)
[2018-07-13] MEDS: MetFORMIN HCL 500 MG TABLET PO SCH ×2 (06:38→16:44)
[2018-07-13] MEDS: FERROUS SULFATE 325 MG EC TABLET PO SCH ×3 (06:38→16:44)
[2018-07-13 08:54] VITALS: BP 144/90
[2018-07-13] MEDS: HALOPERIDOL 10 MG TABLET PO SCH ×2 (08:58→20:19)
[2018-07-13] MEDS: LISINOPRIL 10 MG TABLET PO SCH (08:59)
[2018-07-13 09:30] VITALS: BP 140/90
[2018-07-13 16:10] VITALS: BP 130/84
[2018-07-13] MEDS: MIRTAZAPINE 15 MG TABLET PO SCH (20:19)
[2018-07-14] MEDS: MetFORMIN HCL 500 MG TABLET PO SCH ×2 (06:11→17:03)
[2018-07-14] MEDS: FERROUS SULFATE 325 MG EC TABLET PO SCH ×3 (06:11→17:03)
[2018-07-14 08:26] VITALS: BP 116/76
[2018-07-14] MEDS: LISINOPRIL 10 MG TABLET PO SCH (08:39)
[2018-07-14] MEDS: HALOPERIDOL 10 MG TABLET PO SCH ×2 (08:39→20:30)
[2018-07-14 16:29] VITALS: BP 137/89
[2018-07-14 16:35] VITALS: BP 137/89
[2018-07-14] MEDS: MIRTAZAPINE 15 MG TABLET PO SCH (20:30)
[2018-07-15 04:33] VITALS: BP 128/84
[2018-07-15] MEDS: MetFORMIN HCL 500 MG TABLET PO SCH ×2 (06:46→17:30)
[2018-07-15] MEDS: FERROUS SULFATE 325 MG EC TABLET PO SCH ×3 (06:46→17:30)
[2018-07-15] MEDS: HALOPERIDOL 10 MG TABLET PO SCH ×2 (08:37→21:14)
[2018-07-15] MEDS: LISINOPRIL 10 MG TABLET PO SCH (08:38)
[2018-07-15 08:44] VITALS: BP 137/80
[2018-07-15 17:42] VITALS: BP 123/71
[2018-07-15] MEDS: MIRTAZAPINE 15 MG TABLET PO SCH (21:14)
[2018-07-16] MEDS: MetFORMIN HCL 500 MG TABLET PO SCH ×2 (07:10→17:04)
[2018-07-16] MEDS: FERROUS SULFATE 325 MG EC TABLET PO SCH ×3 (07:10→17:04)
[2018-07-16 07:11] VITALS: BP 118/69
[2018-07-16 08:05] VITALS: BP 139/88
[2018-07-16] MEDS: LISINOPRIL 10 MG TABLET PO SCH (10:13)
[2018-07-16] MEDS: HALOPERIDOL 10 MG TABLET PO SCH ×2 (10:13→20:54)
[2018-07-16 16:59] VITALS: BP 148/96
[2018-07-16] MEDS: MIRTAZAPINE 15 MG TABLET PO SCH (20:54)
[2018-07-17] MEDS: FERROUS SULFATE 325 MG EC TABLET PO SCH ×3 (06:44→16:46)
[2018-07-17] MEDS: MetFORMIN HCL 500 MG TABLET PO SCH ×2 (06:44→16:46)
[2018-07-17 09:57] VITALS: BP 127/87
[2018-07-17] MEDS: LISINOPRIL 10 MG TABLET PO SCH (11:06)
[2018-07-17] MEDS: HALOPERIDOL 10 MG TABLET PO SCH ×2 (11:06→20:59)
[2018-07-17 18:00] VITALS: BP 123/71
[2018-07-17] MEDS: MIRTAZAPINE 15 MG TABLET PO SCH (20:59)
[2018-07-18] MEDS: MetFORMIN HCL 500 MG TABLET PO SCH ×2 (06:40→17:30)
[2018-07-18] MEDS: FERROUS SULFATE 325 MG EC TABLET PO SCH ×3 (06:40→17:30)
[2018-07-18 07:02] LABS: APPEARANCE,URINE CLEAR (CLEAR); BILIRUBIN,URINE NEGATIVE (NEGATIVE); GLUCOSE, URINE (UA) NEGATIVE (NEGATIVE); KETONES,URINE NEGATIVE (NEGATIVE); LEUKOCYTE ESTERASE ,URINE NEGATIVE (NEGATIVE); NITRATE,URINE NEGATIVE (NEGATIVE); OCCULT BLOOD,URINE TRACE (NEGATIVE); PH,URINE 5.5 (5.0-8.0); PROTEIN,URINE NEGATIVE (NEGATIVE); UROBILINOGEN,URINE 0.2 mg/dL (<=1.0)
[2018-07-18 07:20] LABS: BACTERIA,URINE None Seen /HPF (None Seen); RBC,URINE 0-2 /HPF (0-2); SQUAMOUS EPITHELIAL CELL,UR None Seen /LPF (None Seen); WBC,URINE None Seen /HPF (0-5)
[2018-07-18 07:52] LABS: BASOPHILS % (AUTO) 0.8 % (0.0-2.0); EOSINOPHILS % (AUTO) 4.4 % (1.0-6.0); HEMATOCRIT 37.4 % (41-53); HEMOGLOBIN 13.3 g/dL (13.5-17.5); LYMPHOCYTES # (AUTO) 1.6 K/uL (1.0-4.8); LYMPHOCYTES % (AUTO) 34.4 % (22.0-44.0); MEAN CORPUSCULAR HEMOGLOBIN 32.2 pg (26.0-34.0); MEAN CORPUSCULAR HGB CONC 35.6 G/dL (31.0-37.0); MEAN CORPUSCULAR VOLUME 91 fL (80-100); MONOCYTES # (AUTO) 0.3 K/uL (0.1-1.0); MONOCYTES % (AUTO) 6.8 % (2.0-9.0); NEUTROPHILS # (AUTO) 2.5 K/uL (1.8-7.7); NEUTROPHILS % (AUTO) 53.6 % (40.0-70.0); PLATELET COUNT (AUTO) 173 K/uL (150-450); RED BLOOD CELL COUNT(AUTO) 4.14 MIL/uL (4.50-5.90)
[2018-07-18 08:11] LABS: ALANINE AMINOTRANSFERASE 16 U/L (12-78); ALBUMIN 3.7 g/dL (3.4-5.0); ALKALINE PHOSPHATASE 65 U/L (46-116); ANION GAP 2 mmol/L (8-16); ASPARTATE AMINOTRANSFERASE 12 U/L (15-37); BILIRUBIN,TOTAL 0.5 mg/dL (0.1-1.0); CALCIUM, TOTAL 8.8 mg/dL (8.8-10.5); CARBON DIOXIDE 33 mmol/L (22-29); CHLORIDE 105 mmol/L (98-107); CREATININE 0.83 mg/dL (0.60-1.30); GLOMERULAR FILTR. RATE CALC > 60 mL/min (>60); GLUCOSE,RANDOM 89 mg/dL (70-110); POTASSIUM 4.3 mmol/L (3.5-5.1); SODIUM SERUM 140 mmol/L (136-145); TOTAL PROTEIN, SERUM 6.6 g/dL (6.4-8.2); UREA NITROGEN, BLOOD 17 mg/dL (7-18)
[2018-07-18] MEDS: HALOPERIDOL 10 MG TABLET PO SCH ×2 (08:11→21:08)
[2018-07-18] MEDS: LISINOPRIL 10 MG TABLET PO SCH (08:11)
[2018-07-18 09:29] VITALS: BP 115/86
[2018-07-18] MEDS ORDERED: SODIUM CHLORIDE 0.9% 0 ML ONE (12:58)
[2018-07-18] MEDS ORDERED: BARIUM SULFATE 0.1% SUSPENSION 450 ML BOTTLE ONE (12:58)
[2018-07-18] MEDS ORDERED: IOVERSOL 350 MG/ML 100 ML VIAL ONE (12:58)
[2018-07-18 17:13] VITALS: BP 125/58
[2018-07-18] MEDS: MIRTAZAPINE 15 MG TABLET PO SCH (21:08)
[2018-07-19] MEDS: MetFORMIN HCL 500 MG TABLET PO SCH ×2 (06:58→17:38)
[2018-07-19] MEDS: FERROUS SULFATE 325 MG EC TABLET PO SCH ×3 (06:58→17:38)
[2018-07-19 09:18] VITALS: BP 129/76
[2018-07-19] MEDS: HALOPERIDOL 10 MG TABLET PO SCH ×2 (09:52→20:41)
[2018-07-19] MEDS: LISINOPRIL 10 MG TABLET PO SCH (09:52)
[2018-07-19 17:15] VITALS: BP 142/83
[2018-07-19] MEDS: MIRTAZAPINE 15 MG TABLET PO SCH (20:41)
[2018-07-20] MEDS: FERROUS SULFATE 325 MG EC TABLET PO SCH ×3 (06:42→17:10)
[2018-07-20] MEDS: MetFORMIN HCL 500 MG TABLET PO SCH ×2 (06:42→17:10)
[2018-07-20 06:46] VITALS: BP 123/81
[2018-07-20 08:15] VITALS: BP 132/79
[2018-07-20] MEDS: HALOPERIDOL 10 MG TABLET PO SCH ×2 (09:26→20:47)
[2018-07-20] MEDS: LISINOPRIL 10 MG TABLET PO SCH (09:26)
[2018-07-20] MEDS: OLANZapine 5 MG RAPDIS TABLET PO PRN (09:57)
[2018-07-20 18:55] VITALS: BP 145/88
[2018-07-20] MEDS: MIRTAZAPINE 15 MG TABLET PO SCH (20:47)
[2018-07-21] MEDS: FERROUS SULFATE 325 MG EC TABLET PO SCH ×3 (06:46→17:10)
[2018-07-21] MEDS: MetFORMIN HCL 500 MG TABLET PO SCH ×3 (06:46→17:10)
[2018-07-21 08:15] VITALS: BP 131/61
[2018-07-21] MEDS: LISINOPRIL 10 MG TABLET PO SCH (09:52)
[2018-07-21] MEDS: HALOPERIDOL 10 MG TABLET PO SCH ×2 (09:52→20:34)
[2018-07-21] MEDS: MIRTAZAPINE 15 MG TABLET PO SCH (20:34)
[2018-07-21 21:43] VITALS: BP 132/72
[2018-07-22] MEDS: FERROUS SULFATE 325 MG EC TABLET PO SCH ×3 (06:49→16:38)
[2018-07-22] MEDS: MetFORMIN HCL 500 MG TABLET PO SCH ×2 (06:49→16:38)
[2018-07-22] MEDS: LISINOPRIL 10 MG TABLET PO SCH (09:12)
[2018-07-22] MEDS: HALOPERIDOL 10 MG TABLET PO SCH ×2 (09:12→20:37)
[2018-07-22 10:36] VITALS: BP 124/93
[2018-07-22 16:30] VITALS: BP 146/91
[2018-07-22] MEDS: MIRTAZAPINE 15 MG TABLET PO SCH (20:37)
[2018-07-23] MEDS: FERROUS SULFATE 325 MG EC TABLET PO SCH ×3 (06:49→16:27)
[2018-07-23] MEDS: MetFORMIN HCL 500 MG TABLET PO SCH ×2 (06:50→16:27)
[2018-07-23] MEDS: HALOPERIDOL 10 MG TABLET PO SCH ×2 (09:00→20:19)
[2018-07-23] MEDS: LISINOPRIL 10 MG TABLET PO SCH (09:00)
[2018-07-23 09:20] VITALS: BP 134/87
[2018-07-23 17:00] VITALS: BP 139/89
[2018-07-23] MEDS: MIRTAZAPINE 15 MG TABLET PO SCH (20:19)
[2018-07-24] MEDS: MetFORMIN HCL 500 MG TABLET PO SCH ×2 (07:09→16:37)
[2018-07-24] MEDS: FERROUS SULFATE 325 MG EC TABLET PO SCH ×3 (07:09→16:37)
[2018-07-24 08:27] VITALS: BP 141/100
[2018-07-24] MEDS: HALOPERIDOL 10 MG TABLET PO SCH ×2 (08:37→20:13)
[2018-07-24] MEDS: LISINOPRIL 10 MG TABLET PO SCH (08:37)
[2018-07-24] MEDS: MIRTAZAPINE 15 MG TABLET PO SCH (20:13)
[2018-07-24 22:34] VITALS: BP 138/84
[2018-07-25 04:02] VITALS: BP 112/73
[2018-07-25] MEDS: FERROUS SULFATE 325 MG EC TABLET PO SCH ×3 (06:56→17:08)
[2018-07-25] MEDS: MetFORMIN HCL 500 MG TABLET PO SCH ×2 (06:56→17:08)
[2018-07-25 09:40] VITALS: BP 123/71
[2018-07-25] MEDS: LISINOPRIL 10 MG TABLET PO SCH (09:43)
[2018-07-25] MEDS: HALOPERIDOL 10 MG TABLET PO SCH ×2 (09:43→21:17)
[2018-07-25] MEDS: IBUPROFEN 400 MG TABLET PO PRN (09:51)
[2018-07-25 16:22] VITALS: BP 146/87
[2018-07-25] MEDS: MIRTAZAPINE 15 MG TABLET PO SCH (21:17)
[2018-07-26] MEDS: FERROUS SULFATE 325 MG EC TABLET PO SCH ×3 (06:38→17:28)
[2018-07-26] MEDS: MetFORMIN HCL 500 MG TABLET PO SCH ×2 (06:38→17:28)
[2018-07-26] MEDS: LISINOPRIL 10 MG TABLET PO SCH (09:14)
[2018-07-26] MEDS: HALOPERIDOL 10 MG TABLET PO SCH ×2 (09:14→20:23)
[2018-07-26 17:12] VITALS: BP 138/88
[2018-07-26] MEDS: MIRTAZAPINE 15 MG TABLET PO SCH (20:23)
[2018-07-27] MEDS: FERROUS SULFATE 325 MG EC TABLET PO SCH ×3 (06:53→17:48)
[2018-07-27] MEDS: MetFORMIN HCL 500 MG TABLET PO SCH ×2 (06:53→17:48)
[2018-07-27] MEDS: HALOPERIDOL 10 MG TABLET PO SCH ×2 (10:00→20:19)
[2018-07-27] MEDS: LISINOPRIL 10 MG TABLET PO SCH (10:00)
[2018-07-27 11:11] VITALS: BP 147/99
[2018-07-27 16:43] VITALS: BP 130/77
[2018-07-27] MEDS: MIRTAZAPINE 15 MG TABLET PO SCH (20:19)
[2018-07-28] MEDS: MetFORMIN HCL 500 MG TABLET PO SCH ×2 (06:37→16:49)
[2018-07-28] MEDS: FERROUS SULFATE 325 MG EC TABLET PO SCH ×3 (06:37→16:49)
[2018-07-28 08:10] VITALS: BP 130/75
[2018-07-28] MEDS: HALOPERIDOL 10 MG TABLET PO SCH ×2 (08:34→20:27)
[2018-07-28] MEDS: LISINOPRIL 10 MG TABLET PO SCH (08:34)
[2018-07-28 16:54] VITALS: BP 129/80
[2018-07-28] MEDS: MIRTAZAPINE 15 MG TABLET PO SCH (20:27)
[2018-07-29 04:27] VITALS: BP 119/75
[2018-07-29] MEDS: MetFORMIN HCL 500 MG TABLET PO SCH ×2 (06:46→17:23)
[2018-07-29] MEDS: FERROUS SULFATE 325 MG EC TABLET PO SCH ×3 (06:46→17:23)
[2018-07-29] MEDS: HALOPERIDOL 10 MG TABLET PO SCH ×2 (09:14→20:28)
[2018-07-29] MEDS: LISINOPRIL 10 MG TABLET PO SCH (09:14)
[2018-07-29 10:31] VITALS: BP 131/92
[2018-07-29 17:38] VITALS: BP 128/74
[2018-07-29] MEDS: MIRTAZAPINE 15 MG TABLET PO SCH (20:28)
[2018-07-30] MEDS: MetFORMIN HCL 500 MG TABLET PO SCH ×2 (07:10→17:17)
[2018-07-30] MEDS: FERROUS SULFATE 325 MG EC TABLET PO SCH ×3 (07:10→17:17)
[2018-07-30] MEDS: HALOPERIDOL 10 MG TABLET PO SCH ×2 (09:24→20:31)
[2018-07-30] MEDS: LISINOPRIL 10 MG TABLET PO SCH (09:24)
[2018-07-30 09:31] VITALS: BP 111/96
[2018-07-30 18:44] VITALS: BP 145/95
[2018-07-30] MEDS: MIRTAZAPINE 15 MG TABLET PO SCH (20:31)
[2018-07-31] MEDS: MetFORMIN HCL 500 MG TABLET PO SCH ×2 (07:10→17:19)
[2018-07-31] MEDS: FERROUS SULFATE 325 MG EC TABLET PO SCH ×3 (07:10→17:19)
[2018-07-31] MEDS: LISINOPRIL 10 MG TABLET PO SCH (08:29)
[2018-07-31] MEDS: HALOPERIDOL 10 MG TABLET PO SCH ×2 (08:29→20:18)
[2018-07-31 08:30] VITALS: BP 132/79
[2018-07-31 17:55] VITALS: BP 104/71
[2018-07-31] MEDS: MIRTAZAPINE 15 MG TABLET PO SCH (20:18)
[2018-08-01] MEDS: FERROUS SULFATE 325 MG EC TABLET PO SCH ×3 (06:49→17:35)
[2018-08-01] MEDS: MetFORMIN HCL 500 MG TABLET PO SCH ×2 (06:49→17:35)
[2018-08-01 08:30] VITALS: BP 128/73
[2018-08-01] MEDS: LISINOPRIL 10 MG TABLET PO SCH (08:56)
[2018-08-01] MEDS: HALOPERIDOL 10 MG TABLET PO SCH ×2 (08:57→20:36)
[2018-08-01 16:45] VITALS: BP 122/70
[2018-08-01] MEDS: MIRTAZAPINE 15 MG TABLET PO SCH (20:36)
[2018-08-02] MEDS: MetFORMIN HCL 500 MG TABLET PO SCH ×2 (06:50→16:53)
[2018-08-02] MEDS: FERROUS SULFATE 325 MG EC TABLET PO SCH ×3 (06:51→16:53)
[2018-08-02 08:22] VITALS: BP 141/56
[2018-08-02] MEDS: HALOPERIDOL 10 MG TABLET PO SCH ×2 (10:16→22:35)
[2018-08-02] MEDS: LISINOPRIL 10 MG TABLET PO SCH (10:16)
[2018-08-02] MEDS: MIRTAZAPINE 15 MG TABLET PO SCH (22:35)
[2018-08-03] MEDS: MetFORMIN HCL 500 MG TABLET PO SCH ×2 (07:09→16:56)
[2018-08-03] MEDS: FERROUS SULFATE 325 MG EC TABLET PO SCH ×3 (07:09→16:56)
[2018-08-03 08:26] VITALS: BP 134/83
[2018-08-03] MEDS: HALOPERIDOL 10 MG TABLET PO SCH ×2 (10:11→20:45)
[2018-08-03] MEDS: LISINOPRIL 10 MG TABLET PO SCH (10:11)
[2018-08-03 17:17] VITALS: BP 133/92
[2018-08-03] MEDS: MIRTAZAPINE 15 MG TABLET PO SCH (20:45)
[2018-08-04] MEDS: MetFORMIN HCL 500 MG TABLET PO SCH ×2 (06:49→16:13)
[2018-08-04] MEDS: FERROUS SULFATE 325 MG EC TABLET PO SCH ×3 (06:49→16:13)
[2018-08-04] MEDS: LISINOPRIL 10 MG TABLET PO SCH (08:36)
[2018-08-04] MEDS: HALOPERIDOL 10 MG TABLET PO SCH ×2 (08:36→20:30)
[2018-08-04 09:36] VITALS: BP 117/70
[2018-08-04 18:29] VITALS: BP 132/69
[2018-08-04] MEDS: MIRTAZAPINE 15 MG TABLET PO SCH (20:30)
[2018-08-05] MEDS: MetFORMIN HCL 500 MG TABLET PO SCH ×2 (06:42→17:18)
[2018-08-05] MEDS: FERROUS SULFATE 325 MG EC TABLET PO SCH ×3 (06:42→17:18)
[2018-08-05] MEDS: LISINOPRIL 10 MG TABLET PO SCH (09:44)
[2018-08-05] MEDS: HALOPERIDOL 10 MG TABLET PO SCH ×2 (09:44→20:49)
[2018-08-05 10:20] VITALS: BP 132/67
[2018-08-05 17:00] VITALS: BP 116/74
[2018-08-05] MEDS: MIRTAZAPINE 15 MG TABLET PO SCH (20:49)
[2018-08-06] MEDS: FERROUS SULFATE 325 MG EC TABLET PO SCH ×3 (06:35→17:22)
[2018-08-06] MEDS: MetFORMIN HCL 500 MG TABLET PO SCH ×2 (06:35→17:22)
[2018-08-06 08:00] VITALS: BP 147/85
[2018-08-06] MEDS: LISINOPRIL 10 MG TABLET PO SCH (09:21)
[2018-08-06] MEDS: HALOPERIDOL 10 MG TABLET PO SCH ×2 (09:23→20:51)
[2018-08-06 18:21] VITALS: BP 145/90
[2018-08-06] MEDS: MIRTAZAPINE 15 MG TABLET PO SCH (20:51)
[2018-08-07] MEDS: FERROUS SULFATE 325 MG EC TABLET PO SCH ×3 (07:10→16:38)
[2018-08-07] MEDS: MetFORMIN HCL 500 MG TABLET PO SCH ×2 (07:11→16:40)
[2018-08-07] MEDS: LISINOPRIL 10 MG TABLET PO SCH (09:02)
[2018-08-07] MEDS: HALOPERIDOL 10 MG TABLET PO SCH ×2 (09:02→21:23)
[2018-08-07 17:48] VITALS: BP 134/77
[2018-08-07] MEDS: MIRTAZAPINE 15 MG TABLET PO SCH (21:23)
[2018-08-08] MEDS: MetFORMIN HCL 500 MG TABLET PO SCH ×2 (07:07→16:33)
[2018-08-08] MEDS: FERROUS SULFATE 325 MG EC TABLET PO SCH ×3 (07:07→16:33)
[2018-08-08 08:00] VITALS: BP 136/88
[2018-08-08] MEDS: HALOPERIDOL 10 MG TABLET PO SCH ×2 (10:01→20:47)
[2018-08-08] MEDS: LISINOPRIL 10 MG TABLET PO SCH (10:01)
[2018-08-08 17:40] VITALS: BP 154/100
[2018-08-08] MEDS: MIRTAZAPINE 15 MG TABLET PO SCH (20:47)
[2018-08-09] MEDS: MetFORMIN HCL 500 MG TABLET PO SCH ×2 (06:48→17:15)
[2018-08-09] MEDS: FERROUS SULFATE 325 MG EC TABLET PO SCH ×3 (06:48→17:15)
[2018-08-09 08:00] VITALS: BP 134/82
[2018-08-09] MEDS: HALOPERIDOL 10 MG TABLET PO SCH ×2 (09:30→20:24)
[2018-08-09] MEDS: LISINOPRIL 10 MG TABLET PO SCH (09:30)
[2018-08-09 17:09] VITALS: BP 142/62
[2018-08-09] MEDS: MIRTAZAPINE 15 MG TABLET PO SCH (20:24)
[2018-08-10] MEDS: FERROUS SULFATE 325 MG EC TABLET PO SCH ×3 (06:40→16:46)
[2018-08-10] MEDS: MetFORMIN HCL 500 MG TABLET PO SCH ×2 (06:40→16:46)
[2018-08-10 08:00] VITALS: BP 151/73
[2018-08-10] MEDS: HALOPERIDOL 10 MG TABLET PO SCH ×2 (09:07→20:48)
[2018-08-10] MEDS: LISINOPRIL 10 MG TABLET PO SCH (09:07)
[2018-08-10 18:00] VITALS: BP 141/73
[2018-08-10] MEDS: MIRTAZAPINE 15 MG TABLET PO SCH (20:47)
[2018-08-11] MEDS: MetFORMIN HCL 500 MG TABLET PO SCH ×2 (07:04→16:48)
[2018-08-11] MEDS: FERROUS SULFATE 325 MG EC TABLET PO SCH ×3 (07:05→16:48)
[2018-08-11 08:05] VITALS: BP 122/66
[2018-08-11] MEDS: LISINOPRIL 10 MG TABLET PO SCH (09:16)
[2018-08-11] MEDS: HALOPERIDOL 10 MG TABLET PO SCH ×2 (09:16→20:26)
[2018-08-11 19:18] VITALS: BP 140/80
[2018-08-11] MEDS: MIRTAZAPINE 15 MG TABLET PO SCH (20:26)
[2018-08-12] MEDS: FERROUS SULFATE 325 MG EC TABLET PO SCH ×3 (07:00→16:29)
[2018-08-12] MEDS: MetFORMIN HCL 500 MG TABLET PO SCH ×2 (07:00→16:29)
[2018-08-12 08:00] VITALS: BP 128/87
[2018-08-12] MEDS: HALOPERIDOL 10 MG TABLET PO SCH ×2 (09:15→21:10)
[2018-08-12] MEDS: LISINOPRIL 10 MG TABLET PO SCH (09:15)
[2018-08-12 16:00] VITALS: BP 121/85
[2018-08-12] MEDS: MIRTAZAPINE 15 MG TABLET PO SCH (21:10)
[2018-08-13] MEDS: FERROUS SULFATE 325 MG EC TABLET PO SCH ×3 (07:18→16:32)
[2018-08-13] MEDS: MetFORMIN HCL 500 MG TABLET PO SCH ×2 (07:18→16:32)
[2018-08-13 08:00] VITALS: BP 154/86
[2018-08-13] MEDS: LISINOPRIL 10 MG TABLET PO SCH (09:08)
[2018-08-13] MEDS: HALOPERIDOL 10 MG TABLET PO SCH ×2 (09:08→20:18)
[2018-08-13 17:04] VITALS: BP 147/76
[2018-08-13] MEDS: MIRTAZAPINE 15 MG TABLET PO SCH (20:18)
[2018-08-14] MEDS: MetFORMIN HCL 500 MG TABLET PO SCH ×2 (06:31→17:13)
[2018-08-14] MEDS: FERROUS SULFATE 325 MG EC TABLET PO SCH ×3 (06:31→17:13)
[2018-08-14 08:00] VITALS: BP 125/69
[2018-08-14] MEDS: HALOPERIDOL 10 MG TABLET PO SCH ×2 (09:34→20:27)
[2018-08-14] MEDS: LISINOPRIL 10 MG TABLET PO SCH (09:34)
[2018-08-14 19:27] VITALS: BP 138/74
[2018-08-14] MEDS: MIRTAZAPINE 15 MG TABLET PO SCH (20:27)
[2018-08-15] MEDS: FERROUS SULFATE 325 MG EC TABLET PO SCH ×3 (06:58→16:33)
[2018-08-15] MEDS: MetFORMIN HCL 500 MG TABLET PO SCH ×2 (06:58→16:33)
[2018-08-15 08:00] VITALS: BP 140/81
[2018-08-15] MEDS: LISINOPRIL 10 MG TABLET PO SCH (09:19)
[2018-08-15] MEDS: HALOPERIDOL 10 MG TABLET PO SCH ×2 (09:19→20:31)
[2018-08-15 16:30] VITALS: BP 134/84
[2018-08-15] MEDS: MIRTAZAPINE 15 MG TABLET PO SCH (20:31)
[2018-08-16] MEDS: MetFORMIN HCL 500 MG TABLET PO SCH ×2 (06:49→16:52)
[2018-08-16] MEDS: FERROUS SULFATE 325 MG EC TABLET PO SCH ×3 (06:49→16:52)
[2018-08-16 08:00] VITALS: BP 115/66
[2018-08-16] MEDS: LISINOPRIL 10 MG TABLET PO SCH (09:28)
[2018-08-16] MEDS: HALOPERIDOL 10 MG TABLET PO SCH ×2 (09:28→20:12)
[2018-08-16 17:08] VITALS: BP 130/73
[2018-08-16] MEDS: MIRTAZAPINE 15 MG TABLET PO SCH (20:12)
[2018-08-17] MEDS: FERROUS SULFATE 325 MG EC TABLET PO SCH ×3 (06:40→16:56)
[2018-08-17] MEDS: MetFORMIN HCL 500 MG TABLET PO SCH ×2 (06:40→16:56)
[2018-08-17 08:30] VITALS: BP 141/82
[2018-08-17] MEDS: HALOPERIDOL 10 MG TABLET PO SCH ×2 (09:36→21:29)
[2018-08-17] MEDS: LISINOPRIL 10 MG TABLET PO SCH (09:36)
[2018-08-17 17:29] VITALS: BP 129/66
[2018-08-17] MEDS: MIRTAZAPINE 15 MG TABLET PO SCH (21:29)
[2018-08-18] MEDS: FERROUS SULFATE 325 MG EC TABLET PO SCH ×3 (06:41→17:38)
[2018-08-18] MEDS: MetFORMIN HCL 500 MG TABLET PO SCH ×2 (06:41→17:38)
[2018-08-18 08:30] VITALS: BP 132/97
[2018-08-18] MEDS: LISINOPRIL 10 MG TABLET PO SCH (10:08)
[2018-08-18] MEDS: HALOPERIDOL 10 MG TABLET PO SCH ×2 (10:08→20:14)
[2018-08-18 18:16] VITALS: BP 144/91
[2018-08-18] MEDS: MIRTAZAPINE 15 MG TABLET PO SCH (20:14)
[2018-08-19] MEDS: MetFORMIN HCL 500 MG TABLET PO SCH ×2 (06:37→17:56)
[2018-08-19] MEDS: FERROUS SULFATE 325 MG EC TABLET PO SCH ×3 (06:37→17:56)
[2018-08-19 08:05] VITALS: BP 138/74
[2018-08-19] MEDS: HALOPERIDOL 10 MG TABLET PO SCH ×2 (08:37→20:41)
[2018-08-19] MEDS: LISINOPRIL 10 MG TABLET PO SCH (08:37)
[2018-08-19 19:34] VITALS: BP 120/67
[2018-08-19] MEDS: MIRTAZAPINE 15 MG TABLET PO SCH (20:41)
[2018-08-20] MEDS: MetFORMIN HCL 500 MG TABLET PO SCH ×2 (06:58→16:59)
[2018-08-20] MEDS: FERROUS SULFATE 325 MG EC TABLET PO SCH ×3 (06:58→16:59)
[2018-08-20 08:36] VITALS: BP 151/93
[2018-08-20] MEDS: LISINOPRIL 10 MG TABLET PO SCH (09:31)
[2018-08-20] MEDS: HALOPERIDOL 10 MG TABLET PO SCH ×2 (09:31→20:29)
[2018-08-20 17:54] VITALS: BP 137/75
[2018-08-20] MEDS: MIRTAZAPINE 15 MG TABLET PO SCH (20:29)
[2018-08-21] MEDS: FERROUS SULFATE 325 MG EC TABLET PO SCH ×3 (06:51→16:49)
[2018-08-21] MEDS: MetFORMIN HCL 500 MG TABLET PO SCH ×2 (06:51→16:49)
[2018-08-21 08:30] VITALS: BP 122/71
[2018-08-21] MEDS: HALOPERIDOL 10 MG TABLET PO SCH ×2 (08:59→20:44)
[2018-08-21] MEDS: LISINOPRIL 10 MG TABLET PO SCH (08:59)
[2018-08-21 16:34] VITALS: BP 108/69
[2018-08-21] MEDS: MIRTAZAPINE 15 MG TABLET PO SCH (20:44)
[2018-08-22] MEDS: MetFORMIN HCL 500 MG TABLET PO SCH ×2 (06:58→17:38)
[2018-08-22] MEDS: FERROUS SULFATE 325 MG EC TABLET PO SCH ×3 (06:58→17:38)
[2018-08-22 08:02] VITALS: BP 141/81
[2018-08-22] MEDS: HALOPERIDOL 10 MG TABLET PO SCH ×2 (09:00→20:19)
[2018-08-22] MEDS: LISINOPRIL 10 MG TABLET PO SCH (09:00)
[2018-08-22 16:30] VITALS: BP 147/77
[2018-08-22] MEDS: MIRTAZAPINE 15 MG TABLET PO SCH (20:20)
[2018-08-23 02:20] VITALS: BP 109/72
[2018-08-23] MEDS: FERROUS SULFATE 325 MG EC TABLET PO SCH ×3 (06:45→17:30)
[2018-08-23] MEDS: MetFORMIN HCL 500 MG TABLET PO SCH ×2 (06:46→17:30)
[2018-08-23 08:30] VITALS: BP 135/82
[2018-08-23] MEDS: LISINOPRIL 10 MG TABLET PO SCH (10:36)
[2018-08-23] MEDS: HALOPERIDOL 10 MG TABLET PO SCH ×2 (10:36→20:42)
[2018-08-23 16:59] VITALS: BP 119/79
[2018-08-23] MEDS: MIRTAZAPINE 15 MG TABLET PO SCH (20:42)
[2018-08-24] MEDS: MetFORMIN HCL 500 MG TABLET PO SCH ×2 (06:58→17:36)
[2018-08-24] MEDS: FERROUS SULFATE 325 MG EC TABLET PO SCH ×3 (06:58→17:36)
[2018-08-24 08:00] VITALS: BP 137/76
[2018-08-24] MEDS: HALOPERIDOL 10 MG TABLET PO SCH ×2 (10:01→20:16)
[2018-08-24] MEDS: LISINOPRIL 10 MG TABLET PO SCH (10:01)
[2018-08-24 17:00] VITALS: BP 102/61
[2018-08-24] MEDS: MIRTAZAPINE 15 MG TABLET PO SCH (20:16)
[2018-08-25] MEDS: FERROUS SULFATE 325 MG EC TABLET PO SCH ×3 (06:37→16:50)
[2018-08-25] MEDS: MetFORMIN HCL 500 MG TABLET PO SCH ×2 (06:37→16:50)
[2018-08-25 08:00] VITALS: BP 128/77
[2018-08-25] MEDS: HALOPERIDOL 10 MG TABLET PO SCH ×2 (09:43→20:09)
[2018-08-25] MEDS: LISINOPRIL 10 MG TABLET PO SCH (09:43)
[2018-08-25 19:36] VITALS: BP 116/72
[2018-08-25] MEDS: MIRTAZAPINE 15 MG TABLET PO SCH (20:09)
[2018-08-26] MEDS: MetFORMIN HCL 500 MG TABLET PO SCH ×2 (07:01→17:31)
[2018-08-26] MEDS: FERROUS SULFATE 325 MG EC TABLET PO SCH ×3 (07:01→17:31)
[2018-08-26] MEDS: LISINOPRIL 10 MG TABLET PO SCH (10:03)
[2018-08-26] MEDS: HALOPERIDOL 10 MG TABLET PO SCH ×2 (10:03→20:33)
[2018-08-26 12:08] VITALS: BP 124/72
[2018-08-26] MEDS: MIRTAZAPINE 15 MG TABLET PO SCH (20:33)
[2018-08-26 20:52] VITALS: BP 134/85
[2018-08-27] MEDS: FERROUS SULFATE 325 MG EC TABLET PO SCH ×3 (07:20→17:38)
[2018-08-27] MEDS: MetFORMIN HCL 500 MG TABLET PO SCH ×2 (07:30→17:37)
[2018-08-27] MEDS: LISINOPRIL 10 MG TABLET PO SCH (09:12)
[2018-08-27] MEDS: HALOPERIDOL 10 MG TABLET PO SCH ×2 (09:13→20:24)
[2018-08-27 10:59] VITALS: BP 134/80
[2018-08-27 16:51] VITALS: BP 106/63
[2018-08-27] MEDS: MIRTAZAPINE 15 MG TABLET PO SCH (20:24)
[2018-08-28] MEDS: FERROUS SULFATE 325 MG EC TABLET PO SCH ×3 (07:05→17:15)
[2018-08-28] MEDS: MetFORMIN HCL 500 MG TABLET PO SCH ×2 (07:06→17:15)
[2018-08-28 10:20] VITALS: BP 108/69
[2018-08-28] MEDS: LISINOPRIL 10 MG TABLET PO SCH (11:01)
[2018-08-28] MEDS: HALOPERIDOL 10 MG TABLET PO SCH ×2 (11:01→21:13)
[2018-08-28 18:56] VITALS: BP 111/70
[2018-08-28] MEDS: MIRTAZAPINE 15 MG TABLET PO SCH (21:13)
[2018-08-29] MEDS: MetFORMIN HCL 500 MG TABLET PO SCH ×2 (06:58→17:23)
[2018-08-29] MEDS: FERROUS SULFATE 325 MG EC TABLET PO SCH ×3 (06:58→17:23)
[2018-08-29] MEDS: HALOPERIDOL 10 MG TABLET PO SCH ×2 (09:54→20:42)
[2018-08-29] MEDS: LISINOPRIL 10 MG TABLET PO SCH (09:56)
[2018-08-29 13:21] VITALS: BP 115/71
[2018-08-29 20:09] VITALS: BP 139/89
[2018-08-29] MEDS: MIRTAZAPINE 15 MG TABLET PO SCH (20:42)
[2018-08-30] MEDS: FERROUS SULFATE 325 MG EC TABLET PO SCH ×3 (06:59→16:29)
[2018-08-30] MEDS: MetFORMIN HCL 500 MG TABLET PO SCH ×2 (07:00→16:29)
[2018-08-30] MEDS: LISINOPRIL 10 MG TABLET PO SCH (09:47)
[2018-08-30] MEDS: HALOPERIDOL 10 MG TABLET PO SCH ×2 (09:47→20:18)
[2018-08-30 14:08] VITALS: BP 116/80
[2018-08-30 18:20] VITALS: BP 114/75
[2018-08-30] MEDS: MIRTAZAPINE 15 MG TABLET PO SCH (20:19)
[2018-08-31] MEDS: FERROUS SULFATE 325 MG EC TABLET PO SCH ×3 (07:02→17:30)
[2018-08-31] MEDS: MetFORMIN HCL 500 MG TABLET PO SCH ×2 (07:02→17:30)
[2018-08-31] MEDS: HALOPERIDOL 10 MG TABLET PO SCH ×2 (09:44→20:24)
[2018-08-31] MEDS: LISINOPRIL 10 MG TABLET PO SCH (09:44)
[2018-08-31 14:15] VITALS: BP 134/75
[2018-08-31] MEDS: MIRTAZAPINE 15 MG TABLET PO SCH (20:24)
[2018-08-31 22:13] VITALS: BP 119/71
[2018-09-01 06:16] LABS: BASOPHILS % (AUTO) 0.7 % (0.0-2.0); EOSINOPHILS % (AUTO) 3.5 % (1.0-6.0); HEMATOCRIT 35.8 % (41-53); HEMOGLOBIN 12.4 g/dL (13.5-17.5); LYMPHOCYTES # (AUTO) 2.1 K/uL (1.0-4.8); LYMPHOCYTES % (AUTO) 37.4 % (22.0-44.0); MEAN CORPUSCULAR HEMOGLOBIN 31.8 pg (26.0-34.0); MEAN CORPUSCULAR HGB CONC 34.7 G/dL (31.0-37.0); MEAN CORPUSCULAR VOLUME 92 fL (80-100); MONOCYTES # (AUTO) 0.3 K/uL (0.1-1.0); MONOCYTES % (AUTO) 5.9 % (2.0-9.0); NEUTROPHILS % (AUTO) 52.5 % (40.0-70.0); PLATELET COUNT (AUTO) 180 K/uL (150-450); RED BLOOD CELL COUNT(AUTO) 3.91 MIL/uL (4.50-5.90); RED CELL DISTRIBUTION WIDTH 13.7 % (11.5-14.5)
[2018-09-01 06:30] LABS: ANION GAP 7 mmol/L (8-16); CALCIUM, TOTAL 8.9 mg/dL (8.8-10.5); CARBON DIOXIDE 28 mmol/L (22-29); CHLORIDE 105 mmol/L (98-107); CREATININE 0.74 mg/dL (0.60-1.30); GLOMERULAR FILTR. RATE CALC > 60 mL/min (>60); GLUCOSE,RANDOM 80 mg/dL (70-110); POTASSIUM 4.1 mmol/L (3.5-5.1); SODIUM SERUM 140 mmol/L (136-145); UREA NITROGEN, BLOOD 25 mg/dL (7-18)
[2018-09-01] MEDS: MetFORMIN HCL 500 MG TABLET PO SCH ×2 (06:39→16:38)
[2018-09-01] MEDS: FERROUS SULFATE 325 MG EC TABLET PO SCH ×3 (06:39→16:38)
[2018-09-01 07:12] LABS: APPEARANCE,URINE CLEAR (CLEAR); BILIRUBIN,URINE NEGATIVE (NEGATIVE); GLUCOSE, URINE (UA) NEGATIVE (NEGATIVE); KETONES,URINE NEGATIVE (NEGATIVE); LEUKOCYTE ESTERASE ,URINE NEGATIVE (NEGATIVE); NITRATE,URINE NEGATIVE (NEGATIVE); OCCULT BLOOD,URINE NEGATIVE (NEGATIVE); PROTEIN,URINE NEGATIVE (NEGATIVE); UROBILINOGEN,URINE 0.2 mg/dL (<=1.0)
[2018-09-01 08:00] VITALS: BP 124/79
[2018-09-01] MEDS: HALOPERIDOL 10 MG TABLET PO SCH ×2 (09:37→20:34)
[2018-09-01] MEDS: LISINOPRIL 10 MG TABLET PO SCH (09:38)
[2018-09-01] MEDS: MIRTAZAPINE 15 MG TABLET PO SCH (20:34)
[2018-09-01 20:52] VITALS: BP 146/87
[2018-09-02] MEDS: MetFORMIN HCL 500 MG TABLET PO SCH (06:45)
[2018-09-02] MEDS: FERROUS SULFATE 325 MG EC TABLET PO SCH (06:45)
== END 2018-09-02 06:15 | disposition short-term general hospital (02) | DRG 885 ==
LOC: EMS 12:11 → B3A 15:02 → B2S 05-15 14:16 → 3EI 07-15 15:15
PROVIDERS: ADMIT Psychiatry & Neurology Psychiatry; ATTEND Psychiatry & Neurology Psychiatry
DX: F20.0 Paranoid schizophrenia (principal); K42.0 Umbilical hernia with obstruction, without gangrene; R45.851 Suicidal ideations; I87.8 Other specified disorders of veins; D64.9 Anemia, unspecified; E11.9 Type 2 diabetes mellitus without complications; F32.9 Major depressive disorder, single episode, unspecified; F60.0 Paranoid personality disorder; G40.909 Epilepsy, unspecified, not intractable, without status epilepticus; I10 Essential (primary) hypertension; J44.9 Chronic obstructive pulmonary disease, unspecified; K40.90 Unilateral inguinal hernia, without obstruction or gangrene, not specified as recurrent; K80.20 Calculus of gallbladder without cholecystitis without obstruction; F41.9 Anxiety disorder, unspecified; R16.2 Hepatomegaly with splenomegaly, not elsewhere classified; Z86.718 Personal history of other venous thrombosis and embolism; Z79.899 Other long term (current) drug therapy
CPT/HCPCS: 74176; 83036; 84443; 85007; 87081; 90686; 90732; 96372; 97110; 97166; G0480; J1200; J1630; J2060; J7050; Q0162

== ENCOUNTER 2018-05-19 14:37 | Emergency (ER) | payer MEDICARE ==
[~2018-05-19] VITALS: Ht 182.9 cm; Wt 90.9 kg
[2018-05-19 15:49] LABS: APPEARANCE,URINE CLEAR (CLEAR); BILIRUBIN,URINE NEGATIVE (NEGATIVE); GLUCOSE, URINE (UA) NEGATIVE (NEGATIVE); KETONES,URINE NEGATIVE (NEGATIVE); LEUKOCYTE ESTERASE ,URINE NEGATIVE (NEGATIVE); NITRATE,URINE NEGATIVE (NEGATIVE); OCCULT BLOOD,URINE MODERATE (NEGATIVE); PROTEIN,URINE NEGATIVE (NEGATIVE); UROBILINOGEN,URINE 0.2 mg/dL (<=1.0)
[2018-05-19] MEDS ORDERED: IOVERSOL 320 MG/ML 100 ML VIAL ONE (15:52)
[2018-05-19] MEDS ORDERED: SODIUM CHLORIDE 0.9% 0 ML ONE (15:52)
[2018-05-19 15:57] LABS: BACTERIA,URINE Rare /HPF (None Seen); SQUAMOUS EPITHELIAL CELL,UR Rare /LPF (None Seen); WBC,URINE 0-2 /HPF (0-5)
[2018-05-19 16:04] LABS: BASOPHILS % (AUTO) 0.9 % (0.0-2.0); EOSINOPHILS % (AUTO) 4.4 % (1.0-6.0); HEMATOCRIT 35.7 % (41-53); HEMOGLOBIN 12.4 g/dL (13.5-17.5); LYMPHOCYTES # (AUTO) 1.9 K/uL (1.0-4.8); LYMPHOCYTES % (AUTO) 27.5 % (22.0-44.0); MEAN CORPUSCULAR HEMOGLOBIN 31.5 pg (26.0-34.0); MEAN CORPUSCULAR HGB CONC 34.8 G/dL (31.0-37.0); MEAN CORPUSCULAR VOLUME 91 fL (80-100); MONOCYTES # (AUTO) 0.5 K/uL (0.1-1.0); MONOCYTES % (AUTO) 6.6 % (2.0-9.0); NEUTROPHILS # (AUTO) 4.1 K/uL (1.8-7.7); NEUTROPHILS % (AUTO) 60.6 % (40.0-70.0); PLATELET COUNT (AUTO) 225 K/uL (150-450); RED BLOOD CELL COUNT(AUTO) 3.94 MIL/uL (4.50-5.90); RED CELL DISTRIBUTION WIDTH 15.3 % (11.5-14.5)
[2018-05-19 16:12] LABS: ANION GAP 7 mmol/L (8-16); CALCIUM, TOTAL 9.5 mg/dL (8.8-10.5); CARBON DIOXIDE 31 mmol/L (22-29); CHLORIDE 100 mmol/L (98-107); CREATININE 0.97 mg/dL (0.60-1.30); GLOMERULAR FILTR. RATE CALC > 60 mL/min (>60); GLUCOSE,RANDOM 81 mg/dL (70-110); POTASSIUM 4.1 mmol/L (3.5-5.1); SODIUM SERUM 138 mmol/L (136-145); UREA NITROGEN, BLOOD 21 mg/dL (7-18)
[2018-05-19 16:17] LABS: ALANINE AMINOTRANSFERASE 13 U/L (12-78); ALBUMIN 3.8 g/dL (3.4-5.0); ALKALINE PHOSPHATASE 75 U/L (46-116); ASPARTATE AMINOTRANSFERASE 11 U/L (15-37); BILIRUBIN,TOTAL 0.3 mg/dL (0.1-1.0); LIPASE 173 U/L (73-393); TOTAL PROTEIN, SERUM 7.5 g/dL (6.4-8.2)
[2018-05-19 17:47] VITALS: BP 141/85
== END 2018-05-19 17:50 | disposition home or self-care (01) ==
LOC: EMS 14:38
DX: K42.9 Umbilical hernia without obstruction or gangrene (principal); K80.20 Calculus of gallbladder without cholecystitis without obstruction; R16.2 Hepatomegaly with splenomegaly, not elsewhere classified; E11.9 Type 2 diabetes mellitus without complications; I10 Essential (primary) hypertension; F20.9 Schizophrenia, unspecified; F31.9 Bipolar disorder, unspecified
CPT/HCPCS: 99284; J7050

== ENCOUNTER 2018-09-02 07:13 | Inpatient (IN) | payer MEDICARE, MEDICAID ==
[~2018-09-02 07:13] MED LIST changes: +FERR-89 PO; -HALO10TA15 PO; +HALO10TA3 PO; +MIRT15 PO
[2018-09-02 07:28] VITALS: BP 115/75
[2018-09-02] MEDS ORDERED: RINGERS SOLUTION,LACTATED 1,000 ML IV ONE ×3 (10:30→14:25)
[2018-09-02] MEDS ORDERED: ONDANSETRON HCL 4 MG/2 ML VIAL IVP PRN (10:45)
[2018-09-02] MEDS ORDERED: HYDROCODONE/ACETAMINOPHEN 5-325 MG TABLET PO PRN (10:45)
[2018-09-02] MEDS ORDERED: BISACODYL 10 MG RECTAL RECTAL SUPPOSITORY PR PRN (10:45)
[2018-09-02] MEDS ORDERED: ZOLPIDEM TARTRATE 5 MG TABLET PO PRN (10:45)
[2018-09-02] MEDS ORDERED: ACETAMINOPHEN 325 MG TABLET PO PRN (10:45)
[2018-09-02] MEDS ORDERED: MAGNESIUM HYDROXIDE SUSPENSION 30 ML UDCUP PO PRN (10:45)
[2018-09-02] MEDS ORDERED: MORPHINE SULFATE 4 MG/ML SYRINGE IVP PRN ×2 (10:45→16:00)
[2018-09-02] MEDS ORDERED: DEXTROSE 5%-0.9% SODIUM CHL 1,000 ML IV ONE (10:45)
[2018-09-02 11:23] VITALS: BP 114/72
[2018-09-02] MEDS ORDERED: BUPIVACAINE 0.25%/EPI 1:200,000/PF 10 ML VIAL ONE ×2 (11:59→13:24)
[2018-09-02] MEDS ORDERED: MEPERIDINE-PF 25 MG/ML VIAL IVP PRN (12:00)
[2018-09-02] MEDS ORDERED: FERROUS SULFATE 325 MG EC TABLET PO SCH (12:00)
[2018-09-02] MEDS ORDERED: HYDROmorphone 2 MG/ML SYRINGE IVP PRN ×2 (12:00→16:00)
[2018-09-02] MEDS ORDERED: FentaNYL CITRATE-PF 100 MCG/2 ML VIAL IVP PRN (12:00)
[2018-09-02] MEDS ORDERED: BACITRACIN 50,000 UNITS/VIAL ONE (12:24)
[2018-09-02] MEDS ORDERED: BUPIVACAINE 0.25%/EPI 1:200,000/PF 10 ML VIAL INJ ONE ×2 (13:45→14:44)
[2018-09-02] MEDS: HEPARIN SODIUM,PORCINE 5,000 UNITS/ML VIAL SQ SCH (16:00)
[2018-09-02 17:03] VITALS: BP 147/87
[2018-09-02] MEDS: POTASSIUM CHL 20 MEQ/D5LR 1,000 ML IV SCH (17:34)
[2018-09-02] MEDS: IBUPROFEN 200 MG TABLET PO SCH ×3 (17:37→22:18)
[2018-09-02] MEDS ORDERED: MetFORMIN HCL 500 MG TABLET PO SCH (18:00)
[2018-09-02] MEDS ORDERED: DEXTROSE 50%-WATER 25 GM/50 ML SYRINGE IVP PRN (18:30)
[2018-09-02] MEDS: INSULIN LISPRO 100 UNITS/ML SQ PRN (18:36)
[2018-09-02] MEDS: DOCUSATE SODIUM 100 MG CAPSULE PO SCH (20:02)
[2018-09-02] MEDS: FAMOTIDINE 20 MG TABLET PO SCH (20:02)
[2018-09-02] MEDS: HALOPERIDOL 10 MG TABLET PO SCH (20:03)
[2018-09-02] MEDS: MIRTAZAPINE 15 MG TABLET PO SCH (20:04)
[2018-09-02 20:35] VITALS: BP 144/83
[2018-09-02 20:35] LABS: GLUCOMETER DEV NAME(LOC) 5N.1; GLUCOSE,POINT OF CARE 146 MG/DL (70-110)
[2018-09-02] MEDS: CeFAZolin 2 GM/DEXTROSE 50 ML IV SCH (22:18)
[2018-09-02] MEDS: OXYGEN THERAPY IH SCH (22:18)
[2018-09-02] MEDS ORDERED: SODIUM CHLORIDE 0.9% 500 ML IV ONE (22:28)
[2018-09-03 00:09] VITALS: BP 143/80
[2018-09-03 00:39] LABS: GLUCOMETER DEV NAME(LOC) 5N.2; GLUCOSE,POINT OF CARE 134 MG/DL (70-110)
[2018-09-03 04:01] VITALS: BP 109/63
[2018-09-03] MEDS ORDERED: ROCURONIUM BROMIDE 10 MG/ML 5 ML VIAL IVP ONE (05:12)
[2018-09-03] MEDS ORDERED: 0.9% SODIUM CHLORIDE 10 ML VIAL IVP ONE (05:12)
[2018-09-03] MEDS ORDERED: ONDANSETRON HCL 4 MG/2 ML VIAL IVP ONE (05:12)
[2018-09-03] MEDS ORDERED: HYDROmorphone 2 MG/ML SYRINGE IVP ONE (05:12)
[2018-09-03] MEDS ORDERED: LIDOCAINE/PF 2% 5 ML VIAL IM ONE (05:12)
[2018-09-03] MEDS ORDERED: PROPOFOL 1% 20 ML VIAL IVP ONE (05:12)
[2018-09-03] MEDS ORDERED: EPHEDrine SULFATE 50 MG/ML VIAL IM ONE (05:12)
[2018-09-03] MEDS ORDERED: MIDAZOLAM HCL 2 MG/2 ML VIAL IVP ONE (05:12)
[2018-09-03] MEDS ORDERED: GLYCOPYRROLATE 0.2 MG/ML VIAL IM ONE (05:12)
[2018-09-03] MEDS ORDERED: FentaNYL CITRATE-PF 250 MCG/5 ML VIAL IVP ONE (05:12)
[2018-09-03] MEDS: CeFAZolin 2 GM/DEXTROSE 50 ML IV SCH (05:23)
[2018-09-03] MEDS: HYDROCODONE/ACETAMINOPHEN 5-325 MG TABLET PO PRN ×2 (05:24→23:09)
[2018-09-03] MEDS: POTASSIUM CHL 20 MEQ/D5LR 1,000 ML IV SCH ×2 (05:37→17:18)
[2018-09-03 07:12] LABS: BASOPHILS % (AUTO) 0.1 % (0.0-2.0); EOSINOPHILS % (AUTO) 0 % (1.0-6.0); HEMATOCRIT 35.2 % (41-53); HEMOGLOBIN 12.2 g/dL (13.5-17.5); LYMPHOCYTES # (AUTO) 1.2 K/uL (1.0-4.8); LYMPHOCYTES % (AUTO) 8.8 % (22.0-44.0); MEAN CORPUSCULAR HEMOGLOBIN 31.6 pg (26.0-34.0); MEAN CORPUSCULAR HGB CONC 34.5 G/dL (31.0-37.0); MEAN CORPUSCULAR VOLUME 92 fL (80-100); MONOCYTES # (AUTO) 1.1 K/uL (0.1-1.0); MONOCYTES % (AUTO) 8.3 % (2.0-9.0); NEUTROPHILS # (AUTO) 10.8 K/uL (1.8-7.7); NEUTROPHILS % (AUTO) 82.8 % (40.0-70.0); PLATELET COUNT (AUTO) 207 K/uL (150-450); RED BLOOD CELL COUNT(AUTO) 3.85 MIL/uL (4.50-5.90); RED CELL DISTRIBUTION WIDTH 13.5 % (11.5-14.5)
[2018-09-03 07:25] LABS: ANION GAP 8 mmol/L (8-16); CALCIUM, TOTAL 8.7 mg/dL (8.8-10.5); CARBON DIOXIDE 28 mmol/L (22-29); CHLORIDE 105 mmol/L (98-107); CREATININE 0.88 mg/dL (0.60-1.30); GLOMERULAR FILTR. RATE CALC > 60 mL/min (>60); GLUCOSE,RANDOM 113 mg/dL (70-110); POTASSIUM 3.9 mmol/L (3.5-5.1); SODIUM SERUM 141 mmol/L (136-145); UREA NITROGEN, BLOOD 23 mg/dL (7-18)
[2018-09-03 07:31] VITALS: BP 98/53
[2018-09-03] MEDS: OXYGEN THERAPY IH SCH ×2 (08:00→20:00)
[2018-09-03] MEDS: HALOPERIDOL 10 MG TABLET PO SCH ×2 (08:20→20:25)
[2018-09-03] MEDS: FAMOTIDINE 20 MG TABLET PO SCH ×2 (08:20→20:25)
[2018-09-03] MEDS: IBUPROFEN 200 MG TABLET PO SCH ×3 (08:20→20:25)
[2018-09-03] MEDS: DOCUSATE SODIUM 100 MG CAPSULE PO SCH ×2 (08:20→20:25)
[2018-09-03] MEDS: LISINOPRIL 10 MG TABLET PO SCH (08:21)
[2018-09-03] MEDS: HEPARIN SODIUM,PORCINE 5,000 UNITS/ML VIAL SQ SCH ×4 (08:21→23:09)
[2018-09-03 08:40] LABS: GLUCOMETER DEV NAME(LOC) 5N.2; GLUCOSE,POINT OF CARE 130 MG/DL (70-110)
[2018-09-03] MEDS ORDERED: PANTOPRAZOLE SODIUM 40 MG DR TABLET PO SCH (09:00)
[2018-09-03 11:20] VITALS: BP 94/56
[2018-09-03 15:27] VITALS: BP 108/67
[2018-09-03 17:42] LABS: APPEARANCE,URINE CLEAR (CLEAR); BILIRUBIN,URINE NEGATIVE (NEGATIVE); GLUCOSE, URINE (UA) NEGATIVE (NEGATIVE); KETONES,URINE TRACE mg/dL (NEGATIVE); LEUKOCYTE ESTERASE ,URINE SMALL (NEGATIVE); NITRATE,URINE NEGATIVE (NEGATIVE); OCCULT BLOOD,URINE MODERATE (NEGATIVE); PROTEIN,URINE NEGATIVE (NEGATIVE); UROBILINOGEN,URINE 0.2 mg/dL (<=1.0)
[2018-09-03 17:54] LABS: GLUCOMETER DEV NAME(LOC) 6N.1; GLUCOSE,POINT OF CARE 88 MG/DL (70-110)
[2018-09-03 18:01] LABS: BACTERIA,URINE Few /HPF (None Seen); SQUAMOUS EPITHELIAL CELL,UR Few /LPF (None Seen)
[2018-09-03] MEDS: MIRTAZAPINE 15 MG TABLET PO SCH (20:25)
[2018-09-03 23:07] LABS: GLUCOMETER DEV NAME(LOC) 6N.2; GLUCOSE,POINT OF CARE 130 MG/DL (70-110)
[2018-09-03 23:30] VITALS: BP 131/77
[2018-09-04 03:30] VITALS: BP 111/67
[2018-09-04] MEDS: POTASSIUM CHL 20 MEQ/D5LR 1,000 ML IV SCH (06:00)
[2018-09-04 06:59] LABS: GLUCOMETER DEV NAME(LOC) 6N.2; GLUCOSE,POINT OF CARE 101 MG/DL (70-110)
[2018-09-04] MEDS: OXYGEN THERAPY IH SCH (08:00)
[2018-09-04 08:11] VITALS: BP 121/71
[2018-09-04] MEDS: LISINOPRIL 10 MG TABLET PO SCH (08:19)
[2018-09-04] MEDS: HALOPERIDOL 10 MG TABLET PO SCH ×2 (08:19→16:53)
[2018-09-04] MEDS: FAMOTIDINE 20 MG TABLET PO SCH ×2 (08:19→21:24)
[2018-09-04] MEDS: HEPARIN SODIUM,PORCINE 5,000 UNITS/ML VIAL SQ SCH ×2 (08:19→16:00)
[2018-09-04] MEDS: DOCUSATE SODIUM 100 MG CAPSULE PO SCH ×2 (08:19→21:24)
[2018-09-04] MEDS: IBUPROFEN 200 MG TABLET PO SCH ×3 (08:19→21:25)
[2018-09-04 09:36] LABS: BASOPHILS % (AUTO) 0.2 % (0.0-2.0); EOSINOPHILS % (AUTO) 1.6 % (1.0-6.0); HEMATOCRIT 32.7 % (41-53); HEMOGLOBIN 11.2 g/dL (13.5-17.5); LYMPHOCYTES # (AUTO) 0.9 K/uL (1.0-4.8); LYMPHOCYTES % (AUTO) 10.6 % (22.0-44.0); MEAN CORPUSCULAR HEMOGLOBIN 32.2 pg (26.0-34.0); MEAN CORPUSCULAR HGB CONC 34.1 G/dL (31.0-37.0); MEAN CORPUSCULAR VOLUME 94 fL (80-100); MONOCYTES # (AUTO) 0.6 K/uL (0.1-1.0); MONOCYTES % (AUTO) 6.7 % (2.0-9.0); NEUTROPHILS % (AUTO) 80.9 % (40.0-70.0); PLATELET COUNT (AUTO) 146 K/uL (150-450); RED BLOOD CELL COUNT(AUTO) 3.47 MIL/uL (4.50-5.90); RED CELL DISTRIBUTION WIDTH 13.6 % (11.5-14.5)
[2018-09-04 09:46] LABS: ANION GAP 5 mmol/L (8-16); CARBON DIOXIDE 30 mmol/L (22-29); CHLORIDE 104 mmol/L (98-107); GLOMERULAR FILTR. RATE CALC > 60 mL/min (>60); GLUCOSE,RANDOM 110 mg/dL (70-110); SODIUM SERUM 139 mmol/L (136-145); UREA NITROGEN, BLOOD 17 mg/dL (7-18)
[2018-09-04] MEDS ORDERED: DOCUSATE SODIUM 100 MG CAPSULE PO PRN (10:45)
[2018-09-04 11:34] VITALS: BP 103/62
[2018-09-04 12:35] LABS: GLUCOMETER DEV NAME(LOC) 6N.2; GLUCOSE,POINT OF CARE 125 MG/DL (70-110)
[2018-09-04] MEDS ORDERED: MORPHINE SULFATE 4 MG/ML SYRINGE IVP PRN (13:00)
[2018-09-04] MEDS ORDERED: LORazepam 1 MG TABLET PO PRN (13:15)
[2018-09-04] MEDS: HYDROCODONE/ACETAMINOPHEN 5-325 MG TABLET PO PRN (13:42)
[2018-09-04 15:52] VITALS: BP 93/53
[2018-09-04 17:30] LABS: GLUCOMETER DEV NAME(LOC) 6N.1; GLUCOSE,POINT OF CARE 113 MG/DL (70-110)
[2018-09-04 21:10] VITALS: BP 120/69
[2018-09-04] MEDS: MIRTAZAPINE 15 MG TABLET PO SCH (21:24)
[2018-09-04 21:55] LABS: GLUCOMETER DEV NAME(LOC) 5N.2; GLUCOSE,POINT OF CARE 107 MG/DL (70-110)
[2018-09-04 22:05] LABS: GLUCOMETER DEV NAME(LOC) 6N.2; GLUCOSE,POINT OF CARE 141 MG/DL (70-110)
[2018-09-05] MEDS: HEPARIN SODIUM,PORCINE 5,000 UNITS/ML VIAL SQ SCH ×3 (00:02→15:52)
[2018-09-05 00:10] VITALS: BP 95/54
[2018-09-05 05:35] VITALS: BP 127/74
[2018-09-05] MEDS: POTASSIUM CHL 20 MEQ/D5LR 1,000 ML IV SCH ×2 (05:54→08:30)
[2018-09-05] MEDS: HYDROCODONE/ACETAMINOPHEN 5-325 MG TABLET PO PRN ×2 (06:05→15:52)
[2018-09-05 06:49] LABS: GLUCOMETER DEV NAME(LOC) 6N.2; GLUCOSE,POINT OF CARE 82 MG/DL (70-110)
[2018-09-05] MEDS: OXYGEN THERAPY IH SCH ×2 (07:20→20:00)
[2018-09-05 08:20] VITALS: BP 124/81
[2018-09-05] MEDS: HALOPERIDOL 10 MG TABLET PO SCH ×2 (08:29→19:40)
[2018-09-05] MEDS: FAMOTIDINE 20 MG TABLET PO SCH ×2 (08:29→19:39)
[2018-09-05] MEDS: IBUPROFEN 200 MG TABLET PO SCH ×3 (08:29→19:40)
[2018-09-05] MEDS: DOCUSATE SODIUM 100 MG CAPSULE PO SCH ×2 (08:29→19:39)
[2018-09-05 09:40] LABS: BASOPHILS % (AUTO) 0.2 % (0.0-2.0); EOSINOPHILS % (AUTO) 3.3 % (1.0-6.0); HEMATOCRIT 28.7 % (41-53); HEMOGLOBIN 10.3 g/dL (13.5-17.5); LYMPHOCYTES # (AUTO) 0.9 K/uL (1.0-4.8); LYMPHOCYTES % (AUTO) 12.1 % (22.0-44.0); MEAN CORPUSCULAR HEMOGLOBIN 32.8 pg (26.0-34.0); MEAN CORPUSCULAR HGB CONC 35.7 G/dL (31.0-37.0); MEAN CORPUSCULAR VOLUME 92 fL (80-100); MONOCYTES # (AUTO) 0.5 K/uL (0.1-1.0); MONOCYTES % (AUTO) 6.6 % (2.0-9.0); NEUTROPHILS # (AUTO) 5.7 K/uL (1.8-7.7); NEUTROPHILS % (AUTO) 77.8 % (40.0-70.0); PLATELET COUNT (AUTO) 159 K/uL (150-450); RED BLOOD CELL COUNT(AUTO) 3.13 MIL/uL (4.50-5.90); RED CELL DISTRIBUTION WIDTH 13.2 % (11.5-14.5)
[2018-09-05 09:53] LABS: ANION GAP 5 mmol/L (8-16); CALCIUM, TOTAL 8.5 mg/dL (8.8-10.5); CARBON DIOXIDE 29 mmol/L (22-29); CHLORIDE 104 mmol/L (98-107); CREATININE 0.87 mg/dL (0.60-1.30); GLOMERULAR FILTR. RATE CALC > 60 mL/min (>60); GLUCOSE,RANDOM 164 mg/dL (70-110); POTASSIUM 3.7 mmol/L (3.5-5.1); SODIUM SERUM 138 mmol/L (136-145); UREA NITROGEN, BLOOD 19 mg/dL (7-18)
[2018-09-05 11:15] VITALS: BP 112/74
[2018-09-05] MEDS: SULFAMETHOX/TRIMETH DS 800-160 MG/TABLET PO SCH ×2 (11:15→19:39)
[2018-09-05 11:34] LABS: GLUCOMETER DEV NAME(LOC) 6N.2; GLUCOSE,POINT OF CARE 121 MG/DL (70-110)
[2018-09-05 16:04] VITALS: BP 128/63
[2018-09-05 17:44] LABS: GLUCOMETER DEV NAME(LOC) 6N.2; GLUCOSE,POINT OF CARE 104 MG/DL (70-110)
[2018-09-05] MEDS: MIRTAZAPINE 15 MG TABLET PO SCH (19:39)
[2018-09-05 20:34] LABS: GLUCOMETER DEV NAME(LOC) 6N.1; GLUCOSE,POINT OF CARE 114 MG/DL (70-110)
[2018-09-05 20:41] VITALS: BP 123/78
[2018-09-06 00:31] VITALS: BP 142/99
[2018-09-06] MEDS: POTASSIUM CHL 20 MEQ/D5LR 1,000 ML IV SCH (05:32)
[2018-09-06] MEDS: HALOPERIDOL 10 MG TABLET PO SCH ×4 (05:35→22:20)
[2018-09-06] MEDS: HYDROCODONE/ACETAMINOPHEN 5-325 MG TABLET PO PRN ×2 (05:39→22:25)
[2018-09-06] MEDS: HALOPERIDOL 5 MG TABLET PO PRN ×3 (05:40→22:41)
[2018-09-06 06:29] LABS: GLUCOMETER DEV NAME(LOC) 6N.2; GLUCOSE,POINT OF CARE 84 MG/DL (70-110)
[2018-09-06 06:29] LABS: GLUCOMETER DEV NAME(LOC) 6N.2; GLUCOSE,POINT OF CARE 59 MG/DL (70-110)
[2018-09-06] MEDS: IBUPROFEN 200 MG TABLET PO SCH ×3 (08:28→20:08)
[2018-09-06] MEDS: SULFAMETHOX/TRIMETH DS 800-160 MG/TABLET PO SCH ×2 (08:28→20:08)
[2018-09-06] MEDS: FAMOTIDINE 20 MG TABLET PO SCH ×2 (08:28→20:08)
[2018-09-06] MEDS: DOCUSATE SODIUM 100 MG CAPSULE PO SCH ×2 (08:28→20:08)
[2018-09-06 11:06] LABS: ANION GAP 8 mmol/L (8-16); CALCIUM, TOTAL 8.8 mg/dL (8.8-10.5); CARBON DIOXIDE 29 mmol/L (22-29); CHLORIDE 103 mmol/L (98-107); CREATININE 0.89 mg/dL (0.60-1.30); GLOMERULAR FILTR. RATE CALC > 60 mL/min (>60); GLUCOSE,RANDOM 126 mg/dL (70-110); POTASSIUM 3.8 mmol/L (3.5-5.1); SODIUM SERUM 140 mmol/L (136-145); UREA NITROGEN, BLOOD 16 mg/dL (7-18)
[2018-09-06 11:07] LABS: BASOPHILS % (AUTO) 0.3 % (0.0-2.0); HEMATOCRIT 31.1 % (41-53); HEMOGLOBIN 10.8 g/dL (13.5-17.5); LYMPHOCYTES # (AUTO) 0.9 K/uL (1.0-4.8); LYMPHOCYTES % (AUTO) 17.7 % (22.0-44.0); MEAN CORPUSCULAR HEMOGLOBIN 32.3 pg (26.0-34.0); MEAN CORPUSCULAR HGB CONC 34.7 G/dL (31.0-37.0); MEAN CORPUSCULAR VOLUME 93 fL (80-100); MONOCYTES # (AUTO) 0.4 K/uL (0.1-1.0); MONOCYTES % (AUTO) 7.9 % (2.0-9.0); NEUTROPHILS # (AUTO) 3.5 K/uL (1.8-7.7); NEUTROPHILS % (AUTO) 68.1 % (40.0-70.0); PLATELET COUNT (AUTO) 180 K/uL (150-450); RED BLOOD CELL COUNT(AUTO) 3.34 MIL/uL (4.50-5.90); RED CELL DISTRIBUTION WIDTH 13.6 % (11.5-14.5)
[2018-09-06 11:48] VITALS: BP 118/58
[2018-09-06 14:44] LABS: GLUCOMETER DEV NAME(LOC) 6N.2; GLUCOSE,POINT OF CARE 105 MG/DL (70-110)
[2018-09-06] MEDS: BISACODYL 10 MG RECTAL RECTAL SUPPOSITORY PR SCH (15:45)
[2018-09-06] MEDS: MAGNESIUM HYDROXIDE SUSPENSION 30 ML UDCUP PO PRN (16:37)
[2018-09-06 17:00] VITALS: BP 127/79
[2018-09-06 17:55] LABS: GLUCOMETER DEV NAME(LOC) 6N.2; GLUCOSE,POINT OF CARE 107 MG/DL (70-110)
[2018-09-06 19:44] VITALS: BP 137/80
[2018-09-06] MEDS: OXYGEN THERAPY IH SCH (20:00)
[2018-09-06] MEDS: MIRTAZAPINE 15 MG TABLET PO SCH (20:08)
[2018-09-06 23:53] LABS: GLUCOMETER DEV NAME(LOC) 6N.2; GLUCOSE,POINT OF CARE 124 MG/DL (70-110)
[2018-09-06 23:55] VITALS: BP 141/83
[2018-09-07 05:05] VITALS: BP 141/85
[2018-09-07] MEDS: MAGNESIUM HYDROXIDE SUSPENSION 30 ML UDCUP PO PRN (05:16)
[2018-09-07 06:59] LABS: GLUCOMETER DEV NAME(LOC) 6N.1; GLUCOSE,POINT OF CARE 84 MG/DL (70-110)
[2018-09-07 07:15] VITALS: BP 136/81
[2018-09-07 07:21] LABS: ANION GAP 6 mmol/L (8-16); CALCIUM, TOTAL 8.6 mg/dL (8.8-10.5); CARBON DIOXIDE 29 mmol/L (22-29); CHLORIDE 105 mmol/L (98-107); CREATININE 0.73 mg/dL (0.60-1.30); GLOMERULAR FILTR. RATE CALC > 60 mL/min (>60); GLUCOSE,RANDOM 89 mg/dL (70-110); SODIUM SERUM 140 mmol/L (136-145); UREA NITROGEN, BLOOD 14 mg/dL (7-18)
[2018-09-07 07:34] LABS: BASOPHILS % (AUTO) 0.9 % (0.0-2.0); EOSINOPHILS % (AUTO) 5.3 % (1.0-6.0); HEMATOCRIT 29.1 % (41-53); HEMOGLOBIN 10.2 g/dL (13.5-17.5); LYMPHOCYTES # (AUTO) 1.2 K/uL (1.0-4.8); LYMPHOCYTES % (AUTO) 23.4 % (22.0-44.0); MEAN CORPUSCULAR HEMOGLOBIN 32.6 pg (26.0-34.0); MEAN CORPUSCULAR HGB CONC 34.9 G/dL (31.0-37.0); MEAN CORPUSCULAR VOLUME 93 fL (80-100); MONOCYTES # (AUTO) 0.4 K/uL (0.1-1.0); MONOCYTES % (AUTO) 8.1 % (2.0-9.0); NEUTROPHILS # (AUTO) 3.2 K/uL (1.8-7.7); NEUTROPHILS % (AUTO) 62.3 % (40.0-70.0); RED BLOOD CELL COUNT(AUTO) 3.12 MIL/uL (4.50-5.90); RED CELL DISTRIBUTION WIDTH 13.4 % (11.5-14.5)
[2018-09-07] MEDS: OXYGEN THERAPY IH SCH (08:00)
[2018-09-07] MEDS: SULFAMETHOX/TRIMETH DS 800-160 MG/TABLET PO SCH ×2 (08:13→20:09)
[2018-09-07] MEDS: FAMOTIDINE 20 MG TABLET PO SCH ×2 (08:13→20:09)
[2018-09-07] MEDS: DOCUSATE SODIUM 100 MG CAPSULE PO SCH ×2 (08:13→20:09)
[2018-09-07] MEDS: IBUPROFEN 200 MG TABLET PO SCH ×3 (08:14→20:09)
[2018-09-07] MEDS: POVIDONE-IODINE 10% 120 ML SOLUTION TP SCH ×2 (08:14→20:10)
[2018-09-07] MEDS: HALOPERIDOL 10 MG TABLET PO SCH ×2 (08:14→20:09)
[2018-09-07] MEDS: BISACODYL 10 MG RECTAL RECTAL SUPPOSITORY PR SCH (09:00)
[2018-09-07 09:27] LABS: PLATELET COUNT (AUTO) 187 K/uL (150-450)
[2018-09-07 11:36] VITALS: BP 124/80
[2018-09-07 12:20] LABS: GLUCOMETER DEV NAME(LOC) 6N.2; GLUCOSE,POINT OF CARE 112 MG/DL (70-110)
[2018-09-07 16:15] VITALS: BP 134/80
[2018-09-07 18:10] LABS: GLUCOMETER DEV NAME(LOC) 6N.1; GLUCOSE,POINT OF CARE 101 MG/DL (70-110)
[2018-09-07 20:05] VITALS: BP 155/74
[2018-09-07] MEDS: MIRTAZAPINE 15 MG TABLET PO SCH (20:10)
[2018-09-07 22:34] LABS: GLUCOMETER DEV NAME(LOC) 6N.2; GLUCOSE,POINT OF CARE 121 MG/DL (70-110)
[2018-09-07 23:13] VITALS: BP 134/80
[2018-09-08 04:21] VITALS: BP 127/81
[2018-09-08 07:04] LABS: GLUCOMETER DEV NAME(LOC) 6N.1; GLUCOSE,POINT OF CARE 85 MG/DL (70-110)
[2018-09-08 07:25] VITALS: BP 163/73
[2018-09-08] MEDS: OXYGEN THERAPY IH SCH (08:00)
[2018-09-08] MEDS: IBUPROFEN 200 MG TABLET PO SCH (08:16)
[2018-09-08] MEDS: FAMOTIDINE 20 MG TABLET PO SCH ×2 (08:16→21:05)
[2018-09-08] MEDS: DOCUSATE SODIUM 100 MG CAPSULE PO SCH ×2 (08:16→21:05)
[2018-09-08] MEDS: HALOPERIDOL 10 MG TABLET PO SCH ×2 (08:16→21:05)
[2018-09-08] MEDS: SULFAMETHOX/TRIMETH DS 800-160 MG/TABLET PO SCH (08:16)
[2018-09-08] MEDS: BISACODYL 10 MG RECTAL RECTAL SUPPOSITORY PR SCH (09:00)
[2018-09-08] MEDS: POVIDONE-IODINE 10% 120 ML SOLUTION TP SCH ×2 (11:26→21:05)
[2018-09-08 11:34] VITALS: BP 125/77
[2018-09-08 14:34] LABS: GLUCOMETER DEV NAME(LOC) 6N.2; GLUCOSE,POINT OF CARE 105 MG/DL (70-110)
[2018-09-08 15:10] VITALS: BP 133/77
[2018-09-08 17:15] LABS: GLUCOMETER DEV NAME(LOC) 6N.2; GLUCOSE,POINT OF CARE 179 MG/DL (70-110)
[2018-09-08] MEDS: INSULIN LISPRO 100 UNITS/ML SQ PRN (17:56)
[2018-09-08 20:21] VITALS: BP 132/75
[2018-09-08] MEDS: MIRTAZAPINE 15 MG TABLET PO SCH (21:05)
[2018-09-08] MEDS: HYDROCODONE/ACETAMINOPHEN 5-325 MG TABLET PO PRN (21:47)
[2018-09-08 22:59] LABS: GLUCOMETER DEV NAME(LOC) 6N.1; GLUCOSE,POINT OF CARE 94 MG/DL (70-110)
[2018-09-08 23:53] VITALS: BP 125/79
[2018-09-09 05:43] VITALS: BP 121/73
[2018-09-09 06:49] LABS: GLUCOMETER DEV NAME(LOC) 6N.1; GLUCOSE,POINT OF CARE 98 MG/DL (70-110)
[2018-09-09 07:57] VITALS: BP 118/70
[2018-09-09] MEDS: FAMOTIDINE 20 MG TABLET PO SCH ×2 (08:43→20:48)
[2018-09-09] MEDS: HALOPERIDOL 10 MG TABLET PO SCH ×2 (08:43→20:48)
[2018-09-09] MEDS: DOCUSATE SODIUM 100 MG CAPSULE PO SCH ×2 (08:43→20:48)
[2018-09-09] MEDS: POVIDONE-IODINE 10% 120 ML SOLUTION TP SCH ×2 (08:44→21:11)
[2018-09-09] MEDS: BISACODYL 10 MG RECTAL RECTAL SUPPOSITORY PR SCH (08:44)
[2018-09-09 11:59] VITALS: BP 123/69
[2018-09-09 12:04] LABS: GLUCOMETER DEV NAME(LOC) 6N.1; GLUCOSE,POINT OF CARE 96 MG/DL (70-110)
[2018-09-09 16:03] VITALS: BP 117/70
[2018-09-09 18:04] LABS: GLUCOMETER DEV NAME(LOC) 6N.2; GLUCOSE,POINT OF CARE 129 MG/DL (70-110)
[2018-09-09 21:06] VITALS: BP 126/64
[2018-09-09] MEDS: MIRTAZAPINE 15 MG TABLET PO SCH (21:11)
[2018-09-09 22:30] LABS: GLUCOMETER DEV NAME(LOC) 6N.1; GLUCOSE,POINT OF CARE 141 MG/DL (70-110)
[2018-09-10] VITALS (7 sets, daily range): BP systolic 121–144; BP diastolic 66–93
[2018-09-10 06:16] LABS: GLUCOMETER DEV NAME(LOC) 6N.2; GLUCOSE,POINT OF CARE 99 MG/DL (70-110)
[2018-09-10] MEDS: OXYGEN THERAPY IH SCH ×2 (08:00→20:31)
[2018-09-10] MEDS: HALOPERIDOL 10 MG TABLET PO SCH ×2 (08:29→20:31)
[2018-09-10] MEDS: FAMOTIDINE 20 MG TABLET PO SCH ×2 (08:29→20:31)
[2018-09-10] MEDS: DOCUSATE SODIUM 100 MG CAPSULE PO SCH ×2 (08:29→20:30)
[2018-09-10] MEDS: BISACODYL 10 MG RECTAL RECTAL SUPPOSITORY PR SCH (09:00)
[2018-09-10 09:18] LABS: BASOPHILS % (AUTO) 0.4 % (0.0-2.0); EOSINOPHILS % (AUTO) 4.5 % (1.0-6.0); HEMOGLOBIN 11.5 g/dL (13.5-17.5); LYMPHOCYTES # (AUTO) 1.2 K/uL (1.0-4.8); LYMPHOCYTES % (AUTO) 16.5 % (22.0-44.0); MEAN CORPUSCULAR HEMOGLOBIN 31.9 pg (26.0-34.0); MEAN CORPUSCULAR HGB CONC 33.8 G/dL (31.0-37.0); MEAN CORPUSCULAR VOLUME 94 fL (80-100); MONOCYTES # (AUTO) 0.4 K/uL (0.1-1.0); MONOCYTES % (AUTO) 5.9 % (2.0-9.0); NEUTROPHILS # (AUTO) 5.4 K/uL (1.8-7.7); NEUTROPHILS % (AUTO) 72.7 % (40.0-70.0); PLATELET COUNT (AUTO) 310 K/uL (150-450); RED CELL DISTRIBUTION WIDTH 13.4 % (11.5-14.5)
[2018-09-10 09:26] LABS: ANION GAP 6 mmol/L (8-16); CALCIUM, TOTAL 8.9 mg/dL (8.8-10.5); CARBON DIOXIDE 29 mmol/L (22-29); CHLORIDE 101 mmol/L (98-107); CREATININE 1.07 mg/dL (0.60-1.30); GLOMERULAR FILTR. RATE CALC > 60 mL/min (>60); GLUCOSE,RANDOM 154 mg/dL (70-110); SODIUM SERUM 136 mmol/L (136-145); UREA NITROGEN, BLOOD 17 mg/dL (7-18)
[2018-09-10] MEDS: INSULIN LISPRO 100 UNITS/ML SQ PRN (11:59)
[2018-09-10] MEDS: POVIDONE-IODINE 10% 120 ML SOLUTION TP SCH ×2 (12:00→20:33)
[2018-09-10 12:34] LABS: GLUCOMETER DEV NAME(LOC) 6N.1; GLUCOSE,POINT OF CARE 112 MG/DL (70-110)
[2018-09-10 19:23] LABS: GLUCOMETER DEV NAME(LOC) 6N.2; GLUCOSE,POINT OF CARE 132 MG/DL (70-110)
[2018-09-10] MEDS: MIRTAZAPINE 15 MG TABLET PO SCH (20:30)
[2018-09-10 22:07] LABS: GLUCOMETER DEV NAME(LOC) 6N.1; GLUCOSE,POINT OF CARE 104 MG/DL (70-110)
[2018-09-11 05:24] VITALS: BP 124/79
[2018-09-11 06:34] LABS: GLUCOMETER DEV NAME(LOC) 6N.1; GLUCOSE,POINT OF CARE 83 MG/DL (70-110)
[2018-09-11] MEDS: OXYGEN THERAPY IH SCH ×2 (08:00→21:44)
[2018-09-11 08:34] VITALS: BP 137/80
[2018-09-11] MEDS: BISACODYL 10 MG RECTAL RECTAL SUPPOSITORY PR SCH (08:51)
[2018-09-11] MEDS: HALOPERIDOL 10 MG TABLET PO SCH (08:51)
[2018-09-11] MEDS: HYDROCODONE/ACETAMINOPHEN 5-325 MG TABLET PO PRN (08:52)
[2018-09-11] MEDS: POVIDONE-IODINE 10% 120 ML SOLUTION TP SCH ×2 (08:52→21:45)
[2018-09-11] MEDS: DOCUSATE SODIUM 100 MG CAPSULE PO SCH ×2 (08:52→21:42)
[2018-09-11] MEDS: FAMOTIDINE 20 MG TABLET PO SCH ×2 (08:52→21:42)
[2018-09-11 11:15] VITALS: BP 126/75
[2018-09-11 12:59] LABS: GLUCOMETER DEV NAME(LOC) 6N.2; GLUCOSE,POINT OF CARE 95 MG/DL (70-110)
[2018-09-11 15:45] VITALS: BP 124/78
[2018-09-11 18:24] LABS: GLUCOMETER DEV NAME(LOC) 6N.2; GLUCOSE,POINT OF CARE 114 MG/DL (70-110)
[2018-09-11 19:45] VITALS: BP 129/71
[2018-09-11] MEDS: INSULIN LISPRO 100 UNITS/ML SQ PRN (21:42)
[2018-09-11] MEDS: MIRTAZAPINE 15 MG TABLET PO SCH (21:42)
[2018-09-11 23:14] LABS: GLUCOMETER DEV NAME(LOC) 6N.2; GLUCOSE,POINT OF CARE 143 MG/DL (70-110)
[2018-09-11 23:25] VITALS: BP 130/72
[2018-09-12] MEDS: HALOPERIDOL 10 MG TABLET PO SCH ×3 (00:12→20:31)
[2018-09-12 05:05] VITALS: BP 132/81
[2018-09-12 06:35] LABS: GLUCOMETER DEV NAME(LOC) 6N.1; GLUCOSE,POINT OF CARE 88 MG/DL (70-110)
[2018-09-12 08:28] VITALS: BP 128/76
[2018-09-12] MEDS: DOCUSATE SODIUM 100 MG CAPSULE PO SCH ×2 (09:10→20:34)
[2018-09-12] MEDS: BISACODYL 10 MG RECTAL RECTAL SUPPOSITORY PR SCH (09:10)
[2018-09-12] MEDS: FAMOTIDINE 20 MG TABLET PO SCH ×2 (09:11→20:31)
[2018-09-12] MEDS: POVIDONE-IODINE 10% 120 ML SOLUTION TP SCH ×2 (09:11→20:40)
[2018-09-12 11:43] VITALS: BP 133/68
[2018-09-12 15:19] LABS: GLUCOMETER DEV NAME(LOC) 6N.1; GLUCOSE,POINT OF CARE 121 MG/DL (70-110)
[2018-09-12 15:22] VITALS: BP 130/72
[2018-09-12 19:40] VITALS: BP 132/76
[2018-09-12] MEDS: MIRTAZAPINE 15 MG TABLET PO SCH (20:31)
[2018-09-12 22:44] LABS: GLUCOMETER DEV NAME(LOC) 6N.1; GLUCOSE,POINT OF CARE 134 MG/DL (70-110)
[2018-09-12 22:44] LABS: GLUCOMETER DEV NAME(LOC) 6N.1; GLUCOSE,POINT OF CARE 97 MG/DL (70-110)
[2018-09-12 23:59] VITALS: BP 135/80
[2018-09-13 05:52] VITALS: BP 127/73
[2018-09-13 06:11] LABS: BASOPHILS % (AUTO) 0.5 % (0.0-2.0); EOSINOPHILS % (AUTO) 3.8 % (1.0-6.0); HEMOGLOBIN 10.9 g/dL (13.5-17.5); LYMPHOCYTES # (AUTO) 2.1 K/uL (1.0-4.8); LYMPHOCYTES % (AUTO) 24.9 % (22.0-44.0); MEAN CORPUSCULAR HEMOGLOBIN 33.2 pg (26.0-34.0); MEAN CORPUSCULAR HGB CONC 36.2 G/dL (31.0-37.0); MEAN CORPUSCULAR VOLUME 92 fL (80-100); MONOCYTES # (AUTO) 0.6 K/uL (0.1-1.0); MONOCYTES % (AUTO) 6.6 % (2.0-9.0); NEUTROPHILS # (AUTO) 5.4 K/uL (1.8-7.7); NEUTROPHILS % (AUTO) 64.2 % (40.0-70.0); RED BLOOD CELL COUNT(AUTO) 3.27 MIL/uL (4.50-5.90)
[2018-09-13 06:14] LABS: GLUCOMETER DEV NAME(LOC) 6N.2; GLUCOSE,POINT OF CARE 82 MG/DL (70-110)
[2018-09-13 06:39] LABS: ANION GAP 5 mmol/L (8-16); CALCIUM, TOTAL 8.6 mg/dL (8.8-10.5); CARBON DIOXIDE 29 mmol/L (22-29); CHLORIDE 103 mmol/L (98-107); CREATININE 0.88 mg/dL (0.60-1.30); GLOMERULAR FILTR. RATE CALC > 60 mL/min (>60); GLUCOSE,RANDOM 87 mg/dL (70-110); POTASSIUM 4.1 mmol/L (3.5-5.1); SODIUM SERUM 137 mmol/L (136-145); UREA NITROGEN, BLOOD 25 mg/dL (7-18)
[2018-09-13 08:02] VITALS: BP 130/78
[2018-09-13 08:39] LABS: PLATELET COUNT (AUTO) 296 K/uL (150-450)
[2018-09-13] MEDS: BISACODYL 10 MG RECTAL RECTAL SUPPOSITORY PR SCH (09:00)
[2018-09-13] MEDS: DOCUSATE SODIUM 100 MG CAPSULE PO SCH ×2 (09:45→20:16)
[2018-09-13] MEDS: FAMOTIDINE 20 MG TABLET PO SCH ×2 (09:45→20:16)
[2018-09-13] MEDS: HALOPERIDOL 10 MG TABLET PO SCH ×2 (09:45→20:16)
[2018-09-13 12:27] VITALS: BP 134/75
[2018-09-13] MEDS: POVIDONE-IODINE 10% 120 ML SOLUTION TP SCH ×2 (12:45→20:16)
[2018-09-13 14:09] LABS: GLUCOMETER DEV NAME(LOC) 6N.1; GLUCOSE,POINT OF CARE 111 MG/DL (70-110)
[2018-09-13 15:33] VITALS: BP 128/71
[2018-09-13 19:30] VITALS: BP 127/79
[2018-09-13 19:49] LABS: GLUCOMETER DEV NAME(LOC) 6N.1; GLUCOSE,POINT OF CARE 103 MG/DL (70-110)
[2018-09-13] MEDS: MIRTAZAPINE 15 MG TABLET PO SCH (20:16)
[2018-09-13] MEDS: INSULIN LISPRO 100 UNITS/ML SQ PRN (20:25)
[2018-09-13 23:27] VITALS: BP 131/75
[2018-09-14 05:45] VITALS: BP 117/72
[2018-09-14 07:34] LABS: GLUCOMETER DEV NAME(LOC) 6N.2; GLUCOSE,POINT OF CARE 91 MG/DL (70-110)
[2018-09-14 07:34] LABS: GLUCOMETER DEV NAME(LOC) 6N.2; GLUCOSE,POINT OF CARE 162 MG/DL (70-110)
[2018-09-14 08:08] VITALS: BP 135/70
[2018-09-14] MEDS: POVIDONE-IODINE 10% 120 ML SOLUTION TP SCH (08:36)
[2018-09-14] MEDS: BISACODYL 10 MG RECTAL RECTAL SUPPOSITORY PR SCH (08:36)
[2018-09-14] MEDS: FAMOTIDINE 20 MG TABLET PO SCH (08:36)
[2018-09-14] MEDS: DOCUSATE SODIUM 100 MG CAPSULE PO SCH (08:36)
[2018-09-14] MEDS: HALOPERIDOL 10 MG TABLET PO SCH (08:36)
[2018-09-14 12:03] VITALS: BP 128/70
[2018-09-14 13:39] LABS: GLUCOMETER DEV NAME(LOC) 6N.1; GLUCOSE,POINT OF CARE 114 MG/DL (70-110)
== END 2018-09-14 12:26 | DRG 354 ==
LOC: 5N 07:13 → 6N 09-03 15:55
PROVIDERS: ADMIT Surgery; ATTEND Surgery
PROC: 0WUF0JZ Supplement Abdominal Wall with Synthetic Substitute, Open Approach (ICD-10-PCS; principal; 2018-09-02 12:00)
DX: K43.6 Other and unspecified ventral hernia with obstruction, without gangrene (principal); N39.0 Urinary tract infection, site not specified; K42.9 Umbilical hernia without obstruction or gangrene; I10 Essential (primary) hypertension; G40.909 Epilepsy, unspecified, not intractable, without status epilepticus; J44.9 Chronic obstructive pulmonary disease, unspecified; D64.9 Anemia, unspecified; I87.8 Other specified disorders of veins; E11.9 Type 2 diabetes mellitus without complications; K66.0 Peritoneal adhesions (postprocedural) (postinfection); F25.0 Schizoaffective disorder, bipolar type; D72.829 Elevated white blood cell count, unspecified; K59.00 Constipation, unspecified
CPT/HCPCS: 80173; 87081; 87086; 88302; 97110; 97116; 97162; 97167; 97530; 97535; G0238; G0378; J0690; J1170; J1644; J2250; J2270; J2405; J2704; J3010; J3480; J3490; J7040; J7042; J7120